=== PATIENT | female | born 1940 | race Caucasian/White ===

== ENCOUNTER → 2023-10-18 | Outpatient (CLI) | payer MEDICARE | END | disposition home or self-care (01) | LOC: LABWHC1 14:34 | PROVIDERS: ATTEND Internal Medicine Cardiovascular Disease | DX: I48.11 Longstanding persistent atrial fibrillation (principal) | CPT/HCPCS: 36415; 84443; 84450; 84460 ==

== ENCOUNTER → 2023-11-22 | Outpatient (CLI) | payer MEDICARE ==
--- NOTE | 2023-11-22 11:57 | BD ---
EXAMINATION TYPE: Axial Bone Density DATE OF EXAM: 11/22/2023 CLINICAL HISTORY: 83 years old Female. ICD-10 CODE: M81.0 OSTEOPOROSIS Height: 55.5 Weight: 91 FRAX RISK QUESTIONS: Family History (Parent hip fracture): no History of Fracture in Adulthood: yes Secondary Osteoporosis: yes 3. Menopause before 45: yes 39 RISK FACTORS HISTORY OF: Surgery to Spine/Hip(right/left)/Wrist (right/left): no MEDICATIONS: Thyroid Medications: yes Which medication: Levothyroxine How Lon+ years Osteoporosis Medications: no EXAM MEASUREMENTS: Bone mineral densitometry was performed using the [employer] System. Bone mineral density as measured about the Lumbar spine is: ----- L1-L4(G/cm2): 1.134 T Score Values are as follows: ----- L1: -1.0 ----- L2: -1.0 ----- L3: 0.1 ----- L4: 0.0 ----- L1-L4: -0.4 Z Score Values are as follows: ----- L1: 1.7 ----- L2: 1.7 ----- L3: 2.8 ----- L4: 2.7 ----- L1-L4: -0.4 Bone mineral density baseline Bone mineral density about the R hip (g/cm2): 0.536 Bone mineral density about the L hip (g/cm2): 0.632 T Score values are as follows: -----R Neck: -3.2 -----L Neck: -2.8 -----R Total: -3.7 -----L Total: -3.0 Z Score values are as follows: -----R Neck: -0.2 -----L Neck: 0.1 -----R Total: -0.9 -----L Total: -0.1 Bone mineral density baseline FRAX%s: The graph provided illustrates a 29.6% chance for a major osteoporotic fx and a 12.2% chance for the hips probability for fx in 10 years time. IMPRESSION: Osteoporosis (T Score less than -2.5). There is increased fracture risk and therapy is usually indicated based on age. Re-Screen 1-2 years. NOTE: T-SCORE=SD OF THE YOUNG ADULT MEAN.
== END | disposition home or self-care (01) ==
LOC: RADBDWWP 10:33
PROVIDERS: ATTEND Family Medicine
DX: M85.89 Other specified disorders of bone density and structure, multiple sites (principal)
CPT/HCPCS: 77080

== ENCOUNTER 2024-02-28 19:07 | Inpatient (IN) | payer MEDICARE ==
[2024-02-28] MEDS: MECLIZINE 12.5 MG TAB PO STA (20:26)
[2024-02-28 20:27] LABS: Basophils % (A) 0 %; Eosinophils % (A) 0 %; HCT 40.4 % (34.0-46.0); Lymphocytes # (A) 0.8 k/uL (1.0-4.8); Lymphocytes % (A) 6 %; MCHC 32.2 g/dL (31.0-37.0); MCV 111.7 fL (80.0-100.0); Macrocytosis Marked; Mean Platelet Volume 7.6; Monocytes # (A) 0.7 k/uL (0-1.0); Monocytes % (A) 5 %; Neutrophils # (A) 12.4 k/uL (1.3-7.7); Neutrophils % (A) 88 %; Platelet Count 143 k/uL (150-450); RBC 3.62 m/uL (3.80-5.40); RDW 12.2 % (11.5-15.5); WBC 14.1 k/uL (3.8-10.6)
[2024-02-28] MEDS: SODIUM CHLORIDE 0.9% 1,000 ML IV STA (20:28)
[2024-02-28 20:31] LABS: ALT 16 U/L (4-34); AST 42 U/L (14-36); African American GFR (CKD) >90 (>60 ml/min/1.73 sqM); Albumin 3.8 g/dL (3.5-5.0); Alkaline Phosphatase 52 U/L (38-126); Anion Gap 8 mmol/L; Blood Urea Nitrogen 21 mg/dL (7-17); Calcium 9.3 mg/dL (8.4-10.2); Carbon Dioxide 25 mmol/L (22-30); Chloride 98 mmol/L (98-107); Glucose 127 mg/dL (74-99); Non-African American GFR(CKD) 79 (>60 ml/min/1.73 sqM); Potassium 4.6 mmol/L (3.5-5.1); Sodium 131 mmol/L (137-145); Total Bilirubin 0.8 mg/dL (0.2-1.3)
[2024-02-28 20:33] LABS: Prothrombin Time 10.8 sec (10.0-12.5)
--- NOTE | 2024-02-28 20:49 | XR ---
EXAMINATION TYPE: XR chest 2V DATE OF EXAM: 02/28/2024 COMPARISON: None INDICATION: Lightheadedness general weakness on O2 TECHNIQUE: Frontal and lateral views of the chest are obtained. FINDINGS: The heart size is enlarged. There is a large hiatal hernia with air The pulmonary vasculature is prominent. Mild costophrenic angle infiltrates are present.. Degenerative changes are at the bilateral shoulders. There may be partial visualization of a fracture of the right humeral neck. This could be chronic. Correlate with patient history. IMPRESSION: 1. Large hiatal hernia. 2. Bibasilar infiltrates. Correlate for atelectasis. 3. Correlate for pain at the right shoulder. Chronic right shoulder fracture may be present. [facility], Workstation: [facility], 02/28/2024 8:47 PM
[2024-02-28 21:37] LABS: Appearance,Urine Clear (Clear); Bilirubin,Urine Negative (Negative); Blood,Urine Negative (Negative); Color,Urine Light Yellow; Glucose,Urine (UA) Negative (Negative); Ketones,Urine Negative (Negative); Leukocyte Esterase,Urine Negative (Negative); Nitrite,Urine Negative (Negative); PH, Urine 5.5 (5.0-8.0); Protein,Urine Negative (Negative); Specific Gravity,Urine 1.022 (1.001-1.035); Urobilinogen,Urine <2.0 mg/dL (<2.0)
--- NOTE | 2024-02-28 22:11 | CT ---
EXAMINATION TYPE: CT brain wo con DATE OF EXAM: 02/28/2024 HISTORY: Generalized weakness brought in by EMS from [facility]. Pt. is AOx4 and denies pain. W ears 2L O2 at night. CT DLP: 1076.8 mGycm. Automated Exposure Control for Dose Reduction was Utilized. TECHNIQUE: CT scan of the head is performed without contrast. COMPARISON: None. FINDINGS: There is no acute intracranial hemorrhage or midline shift identified. There is moderate diffuse ventricular and sulcal prominence consistent with diffuse age-related cerebral atrophy. Ther e is mild to moderate low-attenuation in the periventricular white matter most likely consistent with chronic small vessel ischemic change in patient of this age. Old infarct left basal ganglia axial im age 25 is noted extending superiorly towards the welsh radiata. Bilateral scleral calcifications are present. Nasal septum is deviated to right of midline. There is dependent fluid in the left sphenoid sinus otherwise paranasal sinuses are clear. IMPRESSION: No acute intracranial hemorrhage or midline shift. There is moderate diffuse age-relate d cerebral atrophy and mild to moderate chronic small vessel ischemic change noted. 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 Left sphenoid sinus disease is noted. [facility], , 02/28/2024 10:08 PM
--- NOTE | 2024-02-28 22:13 | ED ---
General Adult HPI - General Chief complaint: Weakness Stated complaint: Weakness Time Seen by Provider: 02/28/24 19:16 Source: EMS Mode of arrival: EMS - History of Present Illness Initial comments: Patient is an 84-year-old female with a past medical history of atrial fibrillation, not on thinners, COPD on 2 and half liters home oxygen at night presenting today for generalized weakness and lightheadedness. The patient states that she often gets intermittent lightheadedness when she gets up to the bathroom at night however last night she began having lightheadedness around 11:00 and it persisted throughout the day today. She also typically ambulates with a walker however, currently lives with her sister and today was unsteady on her feet even with this. Patient endorses intermittent blurred vision but denies any new numbness, focal weakness, slurred speech or confusion. 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 Additionally she has a dry cough but denies hemoptysis. Denies chest pain or shortness of breath. Denies abdominal pain, nausea, vomiting, diarrhea black or bloody stools. Denies headache. Denies fevers or chills. - Related Data Home Medications Medication Instructions Recorded Confirmed Albuterol Sulfate [Ventolin HFA] 2 puff INHALATION RT-QID PRN 02/28/24 02/28/24 Amiodarone [Cordarone] 100 mg PO DAILY 02/28/24 02/28/24 Atorvastatin Calcium [Lipitor] 40 mg PO HS 02/28/24 02/28/24 Candesartan Cilexetil 8 mg PO DAILY 02/28/24 02/28/24 Esomeprazole Magnesium [NexIUM] 40 mg PO DAILY 02/28/24 02/28/24 Gabapentin [Neurontin] 200 mg PO HS 02/28/24 02/28/24 Ipratropium Barton [Ipratropium 2 spray EA NOSTRIL BID 02/28/24 02/28/24 Barton 0.03%] Levothyroxine Sodium [Synthroid] 100 mcg PO DAILY 02/28/24 02/28/24 Loratadine [Alavert] 10 mg PO DAILY 02/28/24 02/28/24 Magnesium Oxide [Mag-Ox] 800 mg PO HS 02/28/24 02/28/24 Carbon-3/Dha/Epa/Fish Oil [Fish Oil 4 cap PO DAILY 02/28/24 02/28/24 1,000 mg Softgel] Tiotropium Barton [Spiriva] 1 cap INHALATION RT-DAILY 02/28/24 02/28/24 guaiFENesin [Mucinex] 600 mg PO BID 02/28/24 02/28/24 prednisoLONE ACETATE 1% OPHTH 2 drops BOTH EYES BID 02/28/24 02/28/24 [Pred Forte 1%] Allergies Allergy/AdvReac Type Severity Reaction Status Date / Time aspirin AdvReac 325mg Verified 02/28/24 20:21 causes abdominal pain olmesartan [From Benicar] AdvReac "makes her Verified 02/28/24 20:21 crazy" Review of Systems ROS Statement: Those systems with pertinent positive or pertinent negative responses have been documented in the HPI. ROS Other: All systems not noted in ROS Statement are negative. Past Medical History Past Medical History: Atrial Fibrillation, COPD, Hyperlipidemia, Hypertension, Osteoarthritis (OA) History of Any Multi-Drug Resistant Organisms: None Reported Past Psychological History: No Psychological Hx Reported, Anxiety, Depression Smoking Status: Former smoker Past Alcohol Use History: None Reported Past Drug Use History: None Reported General Exam - General Exam Comments Initial Comments: PE: CONSTITUTIONAL: No apparent distress, chronically ill-appearing SKIN: Warm, dry, no jaundice, hives or petechiae EYES: Pupils are equally round, extraocular movements intact without nystagmus, clear conjunctiva, non-icteric sclera HENT: Normocephalic, atraumatic, moist mucus membranes, oropharynx clear without exudates NECK: , Full range of motion, normal appearance PULMONARY: Clear to auscultation without wheezes, rhonchi, or rales, normal excursion, no accessory muscle use and no stridor CARDIOVASCULAR: Irregularly irregular rhythm, normal S1 and S2. No appreciated murmurs, rubs or gallops. Strong radial pulses with intact distal perfusion. No lower extremity edema GASTROINTESTINAL: Soft, active bowel sounds throughout, non-tender, non- distended, no palpable masses, no rebound or guarding. No hepatosplenomegaly MUSCULOSKELETAL: Extremities have no gross deformity, no edema, redness, or swelling. No calf swelling NEUROLOGIC:_a/o x 3, GCS 15, normal mentation and speech. Moves all extremities x 4 without motor or sensory deficit. Cranial nerves: II (visual reina without defects), III, IV and (extraocular movements are intact, pupils are equal with normal reaction to light), V (intact facial sensation and jaw opening), VII (no facial droop), IX and X (normal palate movement, midline uvula, normal voice), XI (symmetrical shoulder shrug and lateral head rotation against resistance), XII (midline tongue protrusion). Motor strength is 5/5 in all extremities. No abnormal movements. Normal muscle tone. Sensation to light touch is intact bilaterally. No cerebellar signs ([id number] normal) PSYCHIATRIC:_normal mood and affect, thought process is clear and linear Course Vital Signs 02/28/24 02/28/24 19:16 21:32 Temperature 97.6 F Pulse Rate 62 57 L Respiratory 18 18 Rate Blood Pressure 108/69 86/55 O2 Sat by Pulse 96 97 Oximetry EKG Findings - EKG Comments: EKG Findings:: Atrial fibrillation, rate 59 bpm, [place] interval 229 ms, QRS duration 121 ms, QT/QTc 466/465 ms, left axis deviation, artifact present throughout, no ST elevations or depressions, no prior for comparison Q waves noted in V3, 4 5 and 6 Medical Decision Making - Medical Decision Making Was pt. sent in by a medical professional or institution (, PA, BATTERY PLATE ASSEMBLER, urgent care, hospital, or chcf...) When possible be specific @ -No Did you speak to anyone other than the patient for history (EMS, parent, family, police, friend...)? What history was obtained from this source @Spoke patient sister at bedside Did you review nursing and triage notes (agree or disagree)? Why? @ -I reviewed and agree with nursing and triage notes Were old charts reviewed (outside hosp., previous admission, EMS record, old EKG, old radiological studies, urgent care reports/EKG's, ch[facility] records)? Report findings @Medical records reviewed Differential Diagnosis (chest pain, altered mental status, abdominal pain women, abdominal pain men, vaginal bleeding, weakness, fever, dyspnea, syncope, headache, dizziness, GI bleed, back pain, seizure, CVA, palpatations, mental health, musculoskeletal)? @Differential Weakness: Hypoglycemia, shock, sepsis, hyponatremia, anemia, infection, ACS, adverse medicine reaction, stroke, this is not meant to be an all-inclusive list. EKG interpreted by me (3pts min.). @ -As above X-rays interpreted by me (1pt min.). @ -Bilateral lower lobe infiltrates CT interpreted by me (1pt min.). @ -No hemorrhage on CT brain, left subclavian artery occlusion, otherwise no LVO on CTA U/S interpreted by me (1pt. min.). @ -None done What testing was considered but not performed or refused? (CT, X-rays, U/S, labs)? Why? @ -None What meds were considered but not given or refused? Why? @ -None Did you discuss the management of the patient with other professionals (professionals i.e. , PA, BATTERY PLATE ASSEMBLER, lab, RT, psych nurse, social security specialist, replenishment merchandising associate, teacher, postal delivery officer, correctional case manager)? Give summary @ -No Was smoking cessation discussed for >3mins.? @ -No Was critical care preformed (if so, how long)? @ -No Were there social determinants of health that impacted care today? How? (Homelessness, low income, unemployed, alcoholism, drug addiction, transportation, low edu. Level, literacy, decrease access to med. care, retirement, rehab)? @ -No Was there de-escalation of care discussed even if they declined (Discuss DNR or withdrawal of care, Hospice)? @ -No What co-morbidities impacted this encounter? (DM, HTN, Smoking, COPD, CAD, Cancer, CVA, ARF, Chemo, Hep., AIDS, mental health diagnosis, sleep apnea, mor bid obesity)? @ -COPD on home 2 and half liters oxygen nightly, atrial fibrillation Was patient admitted / discharged? Hospital course, mention meds given and route, prescriptions, significant lab abnormalities, going to OR and other pertinent info. @ -Admission- Patient is a pleasant 84-year-old female past medical history of atrial fibrillation not on thinners, COPD on 2.5 L oxygen nightly presenting for lightheadedness and generalized weakness. Patient seen and assessed on arrival. On my assessment she is a pleasant comfortable 84-year-old female no acute distress. On 4 L oxygen nasal cannula, though was decreased to 2.5 L by myself and maintain oxygen saturation of 98%. Skin [place] and well-perfused, 2+ radial pulses bilaterally, irregularly irregular rhythm on cardiac exam, no lower extremity edema, no rhonchi rales or wheezes on pulmonary exam, abdomen soft and nontender. No focal neurologic deficits on my evaluation, visual reina are grossly intact. Given patient's history of prior CVA will obtain CT brain CTA to ensure no evidence of hemorrhage or infarct though I would low suspicion for this given lack of focal neurologic deficits, additionally plan for chest x-ray and comprehensive labs, IV fluids meclizine. Patient agreeable plan. EKG did show prolonged QT interval, ordered IV magnesium. CT brain, CTA negative for acute process. 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 She states she is not on thinners for this. Additionally chest x-ray shows bibasilar infiltrates, on my review does appear to be bilateral pneumonia, labs do show mild leukocytosis. Will administer Rocephin and azithromycin. Additionally of note, does note chronic right humerus fracture, patient states that she has previously broken this. On reassessment patient does endorse improvement of lightheadedness however we did ambulate her here and she was significantly unsteady. Her sister voices concern that patient is a fall risk due to worsening weakness. Discussed with patient admission for generalized weakness and pneumonia. Patient is agreeable plan of care. Case was discussed with YANICK Wan who kindly accept patient for admission. Patient admitted in stable condition. Home medications ordered. Undiagnosed new problem with uncertain prognosis? @ -No Drug Therapy requiring intensive monitoring for toxicity (Heparin, Nitro, Insulin, Cardizem)? @ -No Were any procedures done? @ -No Diagnosis/symptom? @Generalized weakness, community-acquired pneumonia Acute, or Chronic, or Acute on Chronic? @Acute Uncomplicated (without systemic symptoms) or Complicated (systemic symptoms)? @Complicated Side effects of treatment? @ -No Exacerbation, Progression, or Severe Exacerbation? @ -No Poses a threat to life or bodily function? How? (Chest pain, USA, LA, pneumonia, PE, COPD, DKA, ARF, appy, cholecystitis, CVA, Diverticulitis, Homicidal, Suicidal, threat to staff... and all critical care pts) @Yes - Lab Data Result diagrams: 02/28/24 19:18 02/28/24 19:18 Lab Results 10/31/24 10/31/24 10/31/24 Range/Units 19:18 19:18 19:18 WBC 14.1 H (3.8-10.6) k/uL RBC 3.62 L (3.80-5.40) m/uL Hgb 13.0 (11.4-16.0) gm/dL Hct 40.4 (34.0-46.0) % MCV 111.7 H (80.0-100.0) fL MCH 36.0 H (25.0-35.0) pg MCHC 32.2 (31.0-37.0) g/dL RDW 12.2 (11.5-15.5) % Plt Count 143 L (150-450) k/uL MPV 7.6 Neutrophils % 88 % Lymphocytes % 6 % Monocytes % 5 % Eosinophils % 0 % Basophils % 0 % Neutrophils # 12.4 H (1.3-7.7) k/uL Lymphocytes # 0.8 L (1.0-4.8) k/uL Monocytes # 0.7 (0-1.0) k/uL Eosinophils # 0.0 (0-0.7) k/uL Basophils # 0.0 (0-0.2) k/uL Manual Slide Review Performed Macrocytosis Marked A PT 10.8 (10.0-12.5) sec INR 1.0 (<1.2) Sodium 131 L (137-145) mmol/L Potassium 4.6 (3.5-5.1) mmol/L Chloride 98 (98-107) mmol/L Carbon Dioxide 25 (22-30) mmol/L Anion Gap 8 mmol/L BUN 21 H (7-17) mg/dL Creatinine 0.70 (0.52-1.04) mg/dL Est GFR (CKD-EPI)AfAm >90 (>60 ml/min/1.73 sqM) Est GFR (CKD-EPI)NonAf 79 (>60 ml/min/1.73 sqM) Glucose 127 H (74-99) mg/dL Calcium 9.3 (8.4-10.2) mg/dL Total Bilirubin 0.8 (0.2-1.3) mg/dL AST 42 H (14-36) U/L ALT 16 (4-34) U/L Alkaline Phosphatase 52 (38-126) U/L Troponin I (0.000-0.034) ng/mL Total Protein 6.0 L (6.3-8.2) g/dL Albumin 3.8 (3.5-5.0) g/dL Urine Color Urine Appearance (Clear) Urine pH (5.0-8.0) Ur Specific [place] (1.001-1.035) Urine Protein (Negative) Urine Glucose (UA) (Negative) Urine Ketones (Negative) Urine Blood (Negative) Urine Nitrite (Negative) Urine Bilirubin (Negative) Urine Urobilinogen (<2.0) mg/dL Ur Leukocyte Esterase (Negative) Influenza Type A (PCR) (Not Detectd) Influenza Type B (PCR) (Not Detectd) RSV (PCR) (Not Detectd) SARS-CoV-2 (PCR) (Not Detectd) 02/28/24 02/28/24 02/28/24 Range/Units 19:18 21:14 23:01 WBC (3.8-10.6) k/uL RBC (3.80-5.40) m/uL Hgb (11.4-16.0) gm/dL Hct (34.0-46.0) % MCV (80.0-100.0) fL MCH (25.0-35.0) pg MCHC (31.0-37.0) g/dL RDW (11.5-15.5) % Plt Count (150-450) k/uL MPV Neutrophils % % Lymphocytes % % Monocytes % % Eosinophils % % Basophils % % Neutrophils # (1.3-7.7) k/uL Lymphocytes # (1.0-4.8) k/uL Monocytes # (0-1.0) k/uL Eosinophils # (0-0.7) k/uL Basophils # (0-0.2) k/uL Manual Slide Review Macrocytosis PT (10.0-12.5) sec INR (<1.2) Sodium (137-145) mmol/L Potassium (3.5-5.1) mmol/L Chloride (98-107) mmol/L Carbon Dioxide (22-30) mmol/L Anion Gap mmol/L BUN (7-17) mg/dL Creatinine (0.52-1.04) mg/dL Est GFR (CKD-EPI)AfAm (>60 ml/min/1.73 sqM) Est GFR (CKD-EPI)NonAf (>60 ml/min/1.73 sqM) Glucose (74-99) mg/dL Calcium (8.4-10.2) mg/dL Total Bilirubin (0.2-1.3) mg/dL AST (14-36) U/L ALT (4-34) U/L Alkaline Phosphatase (38-126) U/L Troponin I <0.012 (0.000-0.034) ng/mL Total Protein (6.3-8.2) g/dL Albumin (3.5-5.0) g/dL Urine Color Light Yellow Urine Appearance Clear (Clear) Urine pH 5.5 (5.0-8.0) Ur Specific [place] 1.022 (1.001-1.035) Urine Protein Negative (Negative) Urine Glucose (UA) Negative (Negative) Urine Ketones Negative (Negative) Urine Blood Negative (Negative) Urine Nitrite Negative (Negative) Urine Bilirubin Negative (Negative) Urine Urobilinogen <2.0 (<2.0) mg/dL Ur Leukocyte Esterase Negative (Negative) Influenza Type A (PCR) Not Detected (Not Detectd) Influenza Type B (PCR) Not Detected (Not Detectd) RSV (PCR) Not Detected (Not Detectd) SARS-CoV-2 (PCR) Not Detected (Not Detectd) Disposition Clinical Impression: Community acquired bacterial pneumonia, Generalized weakness Disposition: ADMITTED IP TO THIS HOSP Condition: Stable Referrals: Kian Ford NPC [Primary Care Provider] - 1-2 days
--- NOTE | 2024-02-28 22:45 | CT ---
EXAMINATION TYPE: CT angio head neck DATE OF EXAM: 02/28/2024 HISTORY: Generalized weakness brought in by EMS from [facility]. Pt. is AOx4 and denies pain. W ears 2L O2 at night. COMPARISON: NONE CT DLP: 336.4 mGycm. Automated Exposure Control for Dose Reduction was Utilized. TECHNIQUE: CTA scan of the head and neck is performed with IV Contrast, patient injected with 65 ml mL of Isovue 370, axial images are obtained, coronal and sagittal reformatted images are reviewed. 3D reconstructed images are created on an independent workstation and reviewed. FINDINGS: Carotid/Vascular Structures: Normal 3 vessel origins from the aortic arch. Severe calcified plaque le ft subclavian artery followed by prominent noncalcified plaque causing complete occlusion along long segment of the left subclavian artery extending into the brachiocephalic artery. Mild to moderate plaque along the course of the common carotid arteries bilaterally without significa nt stenosis. Moderate peripheral calcified plaque right carotid bulb. Moderate to severe calcified pl aque left carotid bulb. Focal significant stenosis down to 2.5 mm with reconstitution to 6.7 mm is no christian. Remainder of the internal carotid arteries show mild to moderate peripheral calcified plaque dis tally without significant stenosis. Patent external carotid arteries bilaterally are seen. Vertebral arteries are codominant and patent to the basilar junction. Patent bilateral posterior to i ndicating arteries are seen. Patent anterior communicating artery is noted. No large vessel occlusion or aneurysm at the level of the false pass of [place]. Other: Multilevel spondylolisthesis along with spurring and disc space narrowing in the cervical spin e. Moderate emphysematous change in the upper lungs is seen. There is partial visualization of large hiatal hernia intrathoracic stomach. IMPRESSION: 1. Complete occlusion of the left subclavian artery extending into the left brachiocephalic artery. C orrelate clinically for left upper extremity paresthesia. 2. Severe calcified plaque left carotid bulb causing focal significant stenosis with estimated lumina l diameter narrowing around 60% in the proximal left internal carotid artery. 3. No large vessel occlusion or aneurysm at the level of the false pass of [place]. NASCET criteria was used in interpretation of this exam? [facility], , 02/28/2024 10:43 PM
[2024-02-28] MEDS: AZITHROMYCIN 500 MG in SODIUM CHLORIDE 0.9% 250 ML IVPB STA (23:02)
[2024-02-28] MEDS: cefTRIAXone IN SWFI 1,000 MG/10 ML SYRINGE IVP STA (23:02)
[2024-02-28] MEDS ORDERED: traMADol 50 MG TAB PO PRN (23:44)
[2024-02-28] MEDS ORDERED: NALOXONE 0.4 MG/ML 1 ML VIAL IV PRN (23:44)
[2024-02-28] MEDS ORDERED: ALPRAZolam 0.25 MG TAB PO PRN (23:44)
[2024-02-28] MEDS ORDERED: ALBUTEROL NEBULIZED 2.5 MG/3 ML INHALATION PRN (23:50)
[2024-02-29] MEDS: MAGNESIUM SULFATE-D5W PMX 1 GM in DEXTROSE/WATER 1 100ML.BAG IVPB SCH (00:08)
[2024-02-29] MEDS: LEVOTHYROXINE 100 MCG TAB PO SCH (06:43)
[2024-02-29] MEDS: PANTOPRAZOLE 40 MG TABLET PO SCH (07:52)
[2024-02-29] MEDS ORDERED: ONDANSETRON 4 MG/2 ML VIAL IVP PRN (11:09)
[2024-02-29] MEDS ORDERED: LACTULOSE 20 GM/30 ML CUP PO PRN (11:09)
[2024-02-29] MEDS ORDERED: CALCIUM CARBONATE 500 MG CHEWABLE PO PRN (11:09)
[2024-02-29] MEDS: FAMOTIDINE 20 MG TAB PO SCH (12:14)
[2024-02-29] MEDS: AMIODARONE 100 MG TAB PO SCH (12:14)
[2024-02-29] MEDS: LOSARTAN 50 MG TAB PO SCH (12:14)
[2024-02-29] MEDS: guaiFENesin 600 MG TABLET.ER PO SCH ×2 (12:14→12:33)
[2024-02-29] MEDS: prednisoLONE ACETATE 1% OPHTH DROPS 5 ML BTL BOTH EYES SCH (12:15)
[2024-02-29] MEDS: ENOXAPARIN 40 MG/0.4 ML SYRINGE SQ SCH (12:16)
[2024-02-29] MEDS: LORATADINE 10 MG TAB PO SCH (12:31)
--- NOTE | 2024-02-29 15:57 | P.HPIM ---
History of Present Illness H&P Date: 02/29/24 Chief Complaint: Cough Very pleasant 84-year-old patient, follows with Dr. Jamie Ford from visiting physicians. Medical conditions include atrial fibrillation, COPD, hypertension, hyperlipidemia, osteoarthritis, complete occlusion of left subclavian artery, does use a walker. Patient at least for a week has been feeling more and more weak coming on. Has a cough mainly unable to expectorate. Rather weak and tired. Denies any fever and chills. Appetite is okay. Patient does use oxygen at home at 2 L. Significant cough. Review of systems: GEN.: Tired EYES: None HEENT: None NECK: None RESPIRATORY: [As above CARDIOVASCULAR: None GASTROINTESTINAL: None GENITOURINARY: None MUSCULOSKELETAL: Joint pains LYMPHATICS: None HEMATOLOGICAL: None PSYCHIATRY: None NEUROLOGICAL: [Uses a walker Social history: Lives at assisted living. Sister lives with her. Does use a walker. Home oxygen at night 2 L. Physical examination: VITAL SIGNS: 97.6, 62, 18, 108/69, 96% on 4 L upon presentation GENERAL: [Reclining in chair, tired, coughing, weak appearing. EYES: Pupils equal. Conjunctiva camila l. HEENT: External appearance of nose and ears normal, oral cavity grossly normal. NECK: JVD not raised; masses not palpable. HEART: First and second heart sounds are normal; no edema. LUNGS: Respiratory rate increased, diminished breath sound prolonged expiration coarse expiratory crackles. Audibly congested. ABDOMEN: Soft, nontender, liver spleen not palpable, no masses palpable. PSYCH: Alert and oriented x3; mood and affect camila l. MUSCULOSKELETAL:No Clubbing/cyanosis;muscles-grossly intact. OA NEUROLOGICAL: Cranial nerves grossly intact; no facial asymmetry, power and sensation grossly intact. LYMPHATICS: No lymph nodes palpable in the axilla and neck INVESTIGATIONS, reviewed in the clinical context: February 27: White count 14.1 hemoglobin 13 platelets 143 sodium 131 potassium 4.6 BUN 21 creatinine 0.7 Troponin I less than 0.012 UA: Negative Influenza type A, type B, RSV, COVID-19: Not detected EKG tracing personally reviewed by me-poor R wave progression. LVH. Some ST-T wave changes. Chest x-ray film personally reviewed by me-large hiatal hernia. Basilar infiltrates. Assessment and plan: -Basal pneumonia. Suspect gram-negative organism. Patient has been weak for a few days. Not able to expectorate much. Ceftriaxone 1 g daily. Zithromax Mucinex 600 mg 4 times daily. Flutter valve. Humidified oxygen -Acute COPD exacerbation in the prior smoker DuoNeb every 4. Nebulized Pulmicort -Acute hypoxic respiratory failure from pneumonia On 4 L of oxygen -Chronic hypoxic respiratory failure. 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 Patient has designated his niece as a medical POA when she is not able to take decisions. Her overall medical condition was discussed. Patient this point is not sure about remaining full code versus DNR. Clinical condition was discussed. At this point patient to remain full code and will she is seen by tomorrow if she wishes to be a DNR. 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 History of Any Multi-Drug Resistant Organisms: None Reported Additional Past Surgical History / Comment(s): previous draining fluid around heart 10 yrs ago per pt Past Anesthesia/Blood Transfusion Reactions: No Reported Reaction Past Psychological History: No Psychological Hx Reported, Anxiety, Depression Smoking Status: Former smoker Past Alcohol Use History: None Reported Past Drug Use History: None Reported - Past Family History Father Family Medical History: Coronary Artery Disease (CAD) Brother(s) Family Medical History: Cancer Medications and Allergies Home Medications Medication Instructions Recorded Confirmed Type Albuterol Sulfate [Ventolin HFA] 2 puff INHALATION RT-QID PRN 02/28/24 02/28/24 History Amiodarone [Cordarone] 100 mg PO DAILY 02/28/24 02/28/24 History Atorvastatin Calcium [Lipitor] 40 mg PO HS 02/28/24 02/28/24 History Candesartan Cilexetil 8 mg PO DAILY 02/28/24 02/28/24 History Esomeprazole Magnesium [NexIUM] 40 mg PO DAILY 02/28/24 02/28/24 History Gabapentin [Neurontin] 200 mg PO HS 02/28/24 02/28/24 History Ipratropium Stark [Ipratropium 2 spray EA NOSTRIL BID 02/28/24 02/28/24 History Stark 0.03%] Levothyroxine Sodium [Synthroid] 100 mcg PO DAILY 02/28/24 02/28/24 History Loratadine [Alavert] 10 mg PO DAILY 02/28/24 02/28/24 History Magnesium Oxide [Mag-Ox] 800 mg PO HS 02/28/24 02/28/24 History Ferris-3/Dha/Epa/Fish Oil [Fish Oil 4 cap PO DAILY 02/28/24 02/28/24 History 1,000 mg Softgel] Tiotropium Stark [Spiriva] 1 cap INHALATION RT-DAILY 02/28/24 02/28/24 History guaiFENesin [Mucinex] 600 mg PO BID 02/28/24 02/28/24 History prednisoLONE ACETATE 1% OPHTH 2 drops BOTH EYES BID 02/28/24 02/28/24 History [Pred Forte 1%] Allergies Allergy/AdvReac Type Severity Reaction Status Date / Time aspirin AdvReac 325mg Verified 02/28/24 20:21 causes abdominal pain olmesartan [From Benicar] AdvReac "makes her Verified 02/28/24 20:21 crazy" Physical Exam Vitals: Vital Signs Temp Pulse Pulse Resp BP BP Pulse Ox 02/29/24 08:00 98.2 F 71 17 164/74 97 02/29/24 07:50 59 L 18 135/66 97 02/29/24 05:00 62 16 117/67 97 02/29/24 02:00 58 L 18 115/62 98 02/29/24 00:00 56 L 18 102/62 99 02/28/24 21:32 57 L 18 86/55 97 02/28/24 19:16 97.6 F 62 18 108/69 96 Intake and Output 02/28/24 02/29/24 02/29/24 22:59 06:59 14:59 Other: # Voids 1 Weight 44.906 kg 44.906 kg Results CBC & Chem 7: 02/28/24 19:18 02/28/24 19:18 Labs: Abnormal Lab Results - Last 24 Hours (Table) 02/28/24 02/28/24 Range/Units 19:18 19:18 WBC 14.1 H (3.8-10.6) k/uL RBC 3.62 L (3.80-5.40) m/uL MCV 111.7 H (80.0-100.0) fL MCH 36.0 H (25.0-35.0) pg Plt Count 143 L (150-450) k/uL Neutrophils # 12.4 H (1.3-7.7) k/uL Lymphocytes # 0.8 L (1.0-4.8) k/uL Macrocytosis Marked A Sodium 131 L (137-145) mmol/L BUN 21 H (7-17) mg/dL Glucose 127 H (74-99) mg/dL AST 42 H (14-36) U/L Total Protein 6.0 L (6.3-8.2) g/dL Thrombosis Risk Factor Assmnt - Choose All That Apply Each Factor Represents 1 point: Abnormal pulmonary function (COPD) Each Risk Factor Represents 3 Points: Age 75 years or older Thrombosis Risk Factor Assessment Total Risk Factor Score: 4 Thrombosis Risk Factor Assessment Level: Moderate Risk
[2024-02-29] MEDS: IPRATROPIUM-ALBUTEROL 3 ML NEB INHALATION SCH (16:07)
[2024-02-29] MEDS: ACETAMINOPHEN TAB 325 MG TAB PO PRN (16:50)
[2024-02-29] MEDS: BUDESONIDE 1 MG/2 ML NEBU INHALATION SCH (20:49)
[2024-02-29] MEDS: ATORVASTATIN 40 MG TAB PO SCH (21:19)
[2024-02-29] MEDS: GABAPENTIN 100 MG CAP PO SCH (21:19)
[2024-02-29] MEDS: MAGNESIUM OXIDE 400 MG TAB PO SCH (21:19)
[2024-03-01 06:40] LABS: ALT 15 U/L (4-34); AST 32 U/L (14-36); African American GFR (CKD) >90 (>60 ml/min/1.73 sqM); Albumin 3.4 g/dL (3.5-5.0); Albumin/Globulin Ratio 1.4; Alkaline Phosphatase 55 U/L (38-126); Anion Gap 6 mmol/L; Blood Urea Nitrogen 15 mg/dL (7-17); Calcium 9.1 mg/dL (8.4-10.2); Carbon Dioxide 25 mmol/L (22-30); Chloride 107 mmol/L (98-107); Globulin 2.4 g/dL; Glucose 89 mg/dL (74-99); Non-African American GFR(CKD) 88 (>60 ml/min/1.73 sqM); Potassium 4.2 mmol/L (3.5-5.1); Sodium 138 mmol/L (137-145); Total Bilirubin 0.5 mg/dL (0.2-1.3); Total Protein 5.8 g/dL (6.3-8.2)
[2024-03-01 14:00] VITALS: BMI 21.4
--- NOTE | 2024-03-01 14:17 | P.PN ---
Progress Note - Text Progress Note Date: 03/01/24 Chief Complaint: Cough Very pleasant 84-year-old patient, follows with Dr. Jamie Ford from visiting physicians. Medical conditions include atrial fibrillation, COPD, hypertension, hyperlipidemia, osteoarthritis, complete occlusion of left subclavian artery, do es use a walker. Patient at least for a week has been feeling more and more weak coming on. Has a cough mainly unable to expectorate. Rather weak and tired. Denies any fever and chills. Appetite is okay. Patient does use oxygen at home at 2 L. Significant cough. March 01: Cough a bit better. Still bringing up sputum. Some shortness of breath. Eating a bit better. Was up in the chair for few hours this morning. Advance care planning done yesterday. Today patient confirms she wants to be full code. Active Medications Acetaminophen (Acetaminophen Tab 325 Mg Tab) 650 mg PO Q6HR PRN PRN Reason: Mild Pain or Fever > 100.5 Last Admin: 02/29/24 16:50 Dose: 650 mg Albuterol Sulfate (Albuterol Nebulized 2.5 Mg/3 Ml) 2.5 mg INHALATION RT-QID PRN PRN Reason: Shortness Of Breath Albuterol/Ipratropium (Ipratropium-Albuterol 3 Ml Neb) 3 ml INHALATION RT-Q4H [facility] Last Admin: 03/01/24 12:50 Dose: 3 ml Alprazolam (Alprazolam 0.25 Mg Tab) 0.25 mg PO Q6HR PRN PRN Reason: Anxiety Amiodarone HCl (Amiodarone 100 Mg Tab) 100 mg PO DAILY [facility] Last Admin: 03/01/24 08:42 Dose: 100 mg Atorvastatin Calcium (Atorvastatin 40 Mg Tab) 40 mg PO HS [facility] Last Admin: 02/29/24 21:19 Dose: 40 mg Azithromycin (Azithromycin 500 Mg Tab) 500 mg PO DAILY [facility]; Protocol Stop: 03/03/24 09:01 Budesonide (Budesonide 1 Mg/2 Ml Nebu) 1 mg INHALATION RT-BID [facility] Last Admin: 03/01/24 09:33 Dose: 1 mg Calcium Carbonate/Glycine (Calcium Carbonate 500 Mg Chewable) 1,000 mg PO Q4HR PRN PRN Reason: Dyspepsia Enoxaparin Sodium (Enoxaparin 40 Mg/0.4 Ml Syringe) 40 mg SQ DAILY [facility] Last Admin: 03/01/24 08:41 Dose: 40 mg Famotidine (Famotidine 20 Mg Tab) 20 mg PO DAILY [facility] Last Admin: 03/01/24 08:41 Dose: 20 mg Gabapentin (Gabapentin 100 Mg Cap) 200 mg PO [facility] Last Admin: 02/29/24 21:19 Dose: 200 mg Guaifenesin (Guaifenesin 600 Mg Tablet.Er) 600 mg PO QID [facility] Last Admin: 03/01/24 12:05 Dose: 600 mg Ceftriaxone Sodium 1 gm/ (Sodium Chloride) 50 mls @ 100 mls/hr IVPB Q24HR [facility]; Protocol Lactulose (Lactulose 20 Gm/30 Ml Cup) 20 gm PO DAILY PRN PRN Reason: Constipation Levothyroxine Sodium (Levothyroxine 100 Mcg Tab) 100 mcg PO DAILY@0600 [facility] Last Admin: 03/01/24 06:36 Dose: 100 mcg Losartan Potassium (Losartan 50 Mg Tab) 50 mg PO DAILY [facility] Last Admin: 03/01/24 08:41 Dose: 50 mg Magnesium Oxide (Magnesium Oxide 400 Mg Tab) 800 mg PO [facility] Last Admin: 02/29/24 21:19 Dose: 800 mg Naloxone HCl (Naloxone 0.4 Mg/Ml 1 Ml Vial) 0.2 mg IV Q2M PRN PRN Reason: Opioid Reversal Ondansetron HCl (Ondansetron 4 Mg/2 Ml Vial) 4 mg IVP Q8HR PRN PRN Reason: Nausea And Vomiting Pantoprazole Sodium (Pantoprazole 40 Mg Tablet) 40 mg PO DAILY@0730 [facility] Last Admin: 03/01/24 06:36 Dose: 40 mg Prednisolone Acetate (Prednisolone Acetate 1% Ophth Drops 5 Ml Btl) 2 drops BOTH EYES BID [facility] Last Admin: 03/01/24 08:42 Dose: 2 drops Tramadol HCl (Tramadol 50 Mg Tab) 50 mg PO Q6H PRN PRN Reason: Moderate Pain (Scale 4 to 6) Social history: Lives at assisted living. Sister lives with her. Does use a walker. Home oxygen at night 2 L. Physical examination: VITAL SIGNS: 97.6, 63, 16, 171 x 89, 96% on 2 L GENERAL: Reclining in bed, breathing a bit better. EYES: Pupils equal. Conjunctiva camila l. HEENT: External appearance of nose and ears normal, oral cavity grossly normal. NECK: JVD not raised; masses not palpable. HEART: First and second heart sounds are normal; no edema. LUNGS: Respiratory rate increased, diminished breath sound prolonged expiration. Decreased congestion ABDOMEN: Soft, nontender, liver spleen not palpable, no masses palpable. PSYCH: Alert and oriented x3; mood and affect camila l. MUSCULOSKELETAL:No Clubbing/cyanosis;muscles-grossly intact. OA INVESTIGATIONS, reviewed in the clinical context: March 01: Potassium 4.2 creatinine 0.5 February 27: White count 14.1 hemoglobin 13 platelets 143 sodium 131 potassium 4.6 BUN 21 creatinine 0.7 Troponin I less than 0.012 UA: Negative Influenza type A, type B, RSV, COVID-19: Not detected EKG tracing personally reviewed by me-poor R wave progression. LVH. Some ST-T wave changes. Chest x-ray film personally reviewed by me-large hiatal hernia. Basilar infiltrates. Assessment and plan: -Basal pneumonia. Suspect gram-negative organism.: Some improvement Ceftriaxone 1 g daily. Zithromax Mucinex 600 mg 4 times daily. Flutter valve. Humidified oxygen -Acute COPD exacerbation in the prior smoker: Slow improvement DuoNeb every 4. Nebulized Pulmicort -Acute hypoxic respiratory failure from pneumonia: Better Now down to 2 L of oxygen -Chronic hypoxic respiratory failure. 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 Patient has designated his niece as a medical POA when she is not able to take decisions. Her overall medical condition was discussed. Patient this point is not sure about remaining full code versus DNR. Clinical condition was discussed. At this point patient to remain full code and will she is seen by tomorrow if she wishes to be a DNR. Time spent with this about 25 minutes Discussed. Continue current treatment plan. 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
[2024-03-01] MEDS: AZITHROMYCIN 500 MG TAB PO SCH (15:15)
[2024-03-02 08:37] VITALS: RESP 17
--- NOTE | 2024-03-02 13:49 | P.PN ---
Progress Note - Text Progress Note Date: 03/02/24 Chief Complaint: Cough Very pleasant 84-year-old patient, follows with Dr. Jamie Ford from visiting physicians. Medical conditions include atrial fibrillation, COPD, hypertension, hyperlipidemia, osteoarthritis, complete occlusion of left subclavian artery, do es use a walker. Patient at least for a week has been feeling more and more weak coming on. Has a cough mainly unable to expectorate. Rather weak and tired. Denies any fever and chills. Appetite is okay. Patient does use oxygen at home at 2 L. Significant cough. March 01: Cough a bit better. Still bringing up sputum. Some shortness of breath. Eating a bit better. Was up in the chair for few hours this morning. Advance care planning done yesterday. Today patient confirms she wants to be full code. March 02: Breathing better. Still bringing up significant amount of sputum. I reminded the nurse to make sure that flutter valve is used. Sitting in the corner of the room. Eating fair. Up in a recliner. Active Medications Acetaminophen (Acetaminophen Tab 325 Mg Tab) 650 mg PO Q6HR PRN PRN Reason: Mild Pain or Fever > 100.5 Last Admin: 03/02/24 08:04 Dose: 650 mg Albuterol Sulfate (Albuterol Nebulized 2.5 Mg/3 Ml) 2.5 mg INHALATION RT-QID PRN PRN Reason: Shortness Of Breath Albuterol/Ipratropium (Ipratropium-Albuterol 3 Ml Neb) 3 ml INHALATION RT-Q4H [facility] Last Admin: 03/02/24 11:42 Dose: 3 ml Alprazolam (Alprazolam 0.25 Mg Tab) 0.25 mg PO Q6HR PRN PRN Reason: Anxiety Amiodarone HCl (Amiodarone 100 Mg Tab) 100 mg PO DAILY [facility] Last Admin: 03/02/24 08:01 Dose: 100 mg Atorvastatin Calcium (Atorvastatin 40 Mg Tab) 40 mg PO HS [facility] Last Admin: 03/01/24 21:54 Dose: 40 mg Azithromycin (Azithromycin 500 Mg Tab) 500 mg PO DAILY [facility]; Protocol Stop: 03/03/24 09:01 Last Admin: 03/02/24 08:01 Dose: 500 mg Budesonide (Budesonide 1 Mg/2 Ml Nebu) 1 mg INHALATION RT-BID [facility] Last Admin: 03/02/24 08:33 Dose: 1 mg Calcium Carbonate/Glycine (Calcium Carbonate 500 Mg Chewable) 1,000 mg PO Q4HR PRN PRN Reason: Dyspepsia Enoxaparin Sodium (Enoxaparin 40 Mg/0.4 Ml Syringe) 40 mg SQ DAILY [facility] Last Admin: 03/02/24 08:00 Dose: 40 mg Famotidine (Famotidine 20 Mg Tab) 20 mg PO DAILY [facility] Last Admin: 03/02/24 08:01 Dose: 20 mg Gabapentin (Gabapentin 100 Mg Cap) 200 mg PO [facility] Last Admin: 03/01/24 21:54 Dose: 200 mg Guaifenesin (Guaifenesin 600 Mg Tablet.Er) 600 mg PO QID [facility] Last Admin: 03/02/24 12:40 Dose: 600 mg Ceftriaxone Sodium 1 gm/ (Sodium Chloride) 50 mls @ 100 mls/hr IVPB Q24HR [facility]; Protocol Last Admin: 03/02/24 08:00 Dose: 100 mls/hr Lactulose (Lactulose 20 Gm/30 Ml Cup) 20 gm PO DAILY PRN PRN Reason: Constipation Levothyroxine Sodium (Levothyroxine 100 Mcg Tab) 100 mcg PO DAILY@0600 [facility] Last Admin: 03/02/24 06:12 Dose: 100 mcg Losartan Potassium (Losartan 50 Mg Tab) 50 mg PO DAILY [facility] Last Admin: 03/02/24 08:01 Dose: 50 mg Magnesium Oxide (Magnesium Oxide 400 Mg Tab) 800 mg PO [facility] Last Admin: 03/01/24 21:54 Dose: 800 mg Naloxone HCl (Naloxone 0.4 Mg/Ml 1 Ml Vial) 0.2 mg IV Q2M PRN PRN Reason: Opioid Reversal Ondansetron HCl (Ondansetron 4 Mg/2 Ml Vial) 4 mg IVP Q8HR PRN PRN Reason: Nausea And Vomiting Pantoprazole Sodium (Pantoprazole 40 Mg Tablet) 40 mg PO DAILY@0730 [facility] Last Admin: 03/02/24 06:12 Dose: 40 mg Prednisolone Acetate (Prednisolone Acetate 1% Ophth Drops 5 Ml Btl) 2 drops BOTH EYES BID [facility] Last Admin: 03/02/24 08:02 Dose: 2 drops Tramadol HCl (Tramadol 50 Mg Tab) 50 mg PO Q6H PRN PRN Reason: Moderate Pain (Scale 4 to 6) Social history: Lives at assisted living. Sister lives with her. Does use a walker. Home oxygen at night 2 L. Physical examination: VITAL SIGNS: 97.9, 73, 17, 135 and 91, 95% on 2 L GENERAL: In a recliner, some shortness of breath EYES: Pupils equal. Conjunctiva camila l. HEENT: External appearance of nose and ears normal, oral cavity grossly normal. NECK: JVD not raised; masses not palpable. HEART: First and second heart sounds are normal; no edema. LUNGS: Respiratory rate increased, diminished breath sound, some basal crackles ABDOMEN: Soft, nontender, liver spleen not palpable, no masses palpable. PSYCH: Alert and oriented x3; mood and affect camila l. MUSCULOSKELETAL:No Clubbing/cyanosis;muscles-grossly intact. OA INVESTIGATIONS, reviewed in the clinical context: March 01: Potassium 4.2 creatinine 0.5 February 27: White count 14.1 hemoglobin 13 platelets 143 sodium 131 potassium 4.6 BUN 21 creatinine 0.7 Troponin I less than 0.012 UA: Negative Influenza type A, type B, RSV, COVID-19: Not detected EKG tracing personally reviewed by me-poor R wave progression. LVH. Some ST-T wave changes. Chest x-ray film personally reviewed by me-large hiatal hernia. Basilar infiltrates. Assessment and plan: -Basal pneumonia. Suspect gram-negative organism.: Slow improvement Ceftriaxone 1 g daily. Zithromax Mucinex 600 mg 4 times daily. Flutter valve. Humidified oxygen -Acute COPD exacerbation in the prior smoker: Slow improvement DuoNeb every 4. Nebulized Pulmicort -Acute hypoxic respiratory failure from pneumonia: Better Now down to 2 L of oxygen -Chronic hypoxic respiratory failure. 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 Patient has designated his niece as a medical POA when she is not able to take decisions. Her overall medical condition was discussed. Patient this point is not sure about remaining full code versus DNR. Clinical condition was discussed. At this point patient to remain full code and will she is seen by tomorrow if she wishes to be a DNR. Time spent with this about 25 minutes Continue current medication treatment plan. Discussed with patient. 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
[2024-03-03 07:38] VITALS: BP 167/98; TEMP 97.8
[2024-03-03 11:15] VITALS: PULSE 76
--- NOTE | 2024-03-03 17:14 | P.DS ---
Providers Date of admission: 02/28/24 23:45 Expected date of discharge: 03/03/24 Attending physician: Efren Eric Primary care physician: MARIE Culver Hospital Course: Chief Complaint: Cough Very pleasant 84-year-old patient, follows with Dr. Jamie Ford from visiting physicians. Medical conditions include atrial fibrillation, COPD, hypertension, hyperlipidemia, osteoarthritis, complete occlusion of left subclavian artery, does use a walker. Patient at least for a week has been feeling more and more weak coming on. Has a cough mainly unable to expectorate. Rather weak and tired. Denies any fever and chills. Appetite is okay. Patient does use oxygen at home at 2 L. Significant cough. March 01: Cough a bit better. Still bringing up sputum. Some shortness of breath. Eating a bit better. Was up in the chair for few hours this morning. Advance care planning done yesterday. Today patient confirms she wants to be full code. March 02: Breathing better. Still bringing up significant amount of sputum. I reminded the nurse to make sure that flutter valve is used. Sitting in the corner of the room. Eating fair. Up in a recliner. March 03: In a recliner. Bringing up good amount of sputum. Eating much better. Keen to go home. Will complete 4 more days of Ceftin. Has him oxygen. Will discontinue patient's Spiriva because of poor muscle mass and arthritis. Will discharge on Symbicort and DuoNeb. Patient does follow-up with seed analysis laboratory assistant Dr. Martinez. Follow-up with the same. Discussion and discharge planning more than 35 minutes Social history: Lives at assisted living. Sister lives with her. Does use a walker. Home oxygen at night 2 L. Physical examination: VITAL SIGNS: 97.8, 72, 17, 167 Ac 98, 95% liters GENERAL: In a recliner, comfortable EYES: Pupils equal. Conjunctiva camila l. HEENT: External appearance of nose and ears normal, oral cavity grossly normal. NECK: JVD not raised; masses not palpable. HEART: First and second heart sounds are normal; no edema. LUNGS: Respiratory rate increased, diminished breath sound, improved crackles ABDOMEN: Soft, nontender, liver spleen not palpable, no masses palpable. PSYCH: Alert and oriented x3; mood and affect camila l. MUSCULOSKELETAL:No Clubbing/cyanosis;muscles-grossly intact. OA INVESTIGATIONS, reviewed in the clinical context: March 01: Potassium 4.2 creatinine 0.5 February 27: White count 14.1 hemoglobin 13 platelets 143 sodium 131 potassium 4.6 BUN 21 creatinine 0.7 Troponin I less than 0.012 UA: Negative Influenza type A, type B, RSV, COVID-19: Not detected EKG tracing personally reviewed by me-poor R wave progression. LVH. Some ST-T wave changes. Chest x-ray film personally reviewed by me-large hiatal hernia. Basilar infiltrates. Assessment and plan: -Basal pneumonia. Suspect gram-negative organism.: Much better Ceftriaxone 1 g daily. Zithromax Mucinex 600 mg 4 times daily. Flutter valve. Humidified oxygen Discharged on 4 4 days of Ceftin 5 mg twice daily -Acute COPD exacerbation in the prior smoker: Much better DuoNeb every 4. Nebulized Pulmicort Discharged on DuoNeb 3 times daily. Symbicort. Follow-up with Dr. Martinez -Acute hypoxic respiratory failure from pneumonia: Better Now down to 2 L of oxygen -Chronic hypoxic respiratory failure. 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 Patient has designated his niece as a medical POA when she is not able to take decisions. Her overall medical condition was discussed. Patient this point is not sure about remaining full code versus DNR. Clinical condition was discussed. At this point patient to remain full code and will she is seen by tomorrow if she wishes to be a DNR. 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 History of Any Multi-Drug Resistant Organisms: None Reported Additional Past Surgical History / Comment(s): previous draining fluid around heart 10 yrs ago per pt Past Anesthesia/Blood Transfusion Reactions: No Reported Reaction Past Psychological History: No Psychological Hx Reported, Anxiety, Depression Smoking Status: Former smoker Past Alcohol Use History: None Reported Past Drug Use History: None Reported Plan - Discharge Summary Discharge Rx Participant: No New Discharge Prescriptions: New cefUROXime axetiL [Ceftin] 500 mg PO BID 1 Days #8 tab Ipratropium-Albuterol Nebulize [Duoneb 0.5 mg-3 mg/3 ml Soln] 3 ml INHALATION TID #90 each Budesonide/Formoterol Fumarate [Symbicort 160-4.5 Mcg Inhaler] 1 puff INHALATION BID #10.2 gm Continue [place]-3/Dha/Epa/Fish Oil [Fish Oil 1,000 mg Softgel] 4 cap PO DAILY prednisoLONE ACETATE 1% OPHTH [Pred Forte 1%] 2 drops BOTH EYES BID Gabapentin [Neurontin] 200 mg PO HS Esomeprazole Magnesium [NexIUM] 40 mg PO DAILY Magnesium Oxide [Mag-Ox] 800 mg PO HS Levothyroxine Sodium [Synthroid] 100 mcg PO DAILY Albuterol Sulfate [Ventolin HFA] 2 puff INHALATION RT-QID PRN PRN Reason: Shortness Of Breath Ipratropium [place] [Ipratropium [place]aka 0.03%] 2 spray EA NOSTRIL BID Candesartan Cilexetil 8 mg PO DAILY Atorvastatin Calcium [Lipitor] 40 mg PO HS Amiodarone [Cordarone] 100 mg PO DAILY Changed guaiFENesin [Mucinex] 600 mg PO TID #0 Discontinued Tiotropium [place]aka [Spiriva] 1 cap INHALATION RT-DAILY Loratadine [Alavert] 10 mg PO DAILY Discharge Medication List Albuterol Sulfate [Ventolin HFA] 2 puff INHALATION RT-QID PRN 02/28/24 [History] Amiodarone [Cordarone] 100 mg PO DAILY 02/28/24 [History] Atorvastatin Calcium [Lipitor] 40 mg PO HS 02/28/24 [History] Candesartan Cilexetil 8 mg PO DAILY 02/28/24 [History] Esomeprazole Magnesium [NexIUM] 40 mg PO DAILY 02/28/24 [History] Gabapentin [Neurontin] 200 mg PO HS 02/28/24 [History] Ipratropium [place] [Ipratropium [place] 0.03%] 2 spray EA NOSTRIL BID 02/28/24 [History] Levothyroxine Sodium [Synthroid] 100 mcg PO DAILY 02/28/24 [History] Magnesium Oxide [Mag-Ox] 800 mg PO HS 02/28/24 [History] [place]-3/Dha/Epa/Fish Oil [Fish Oil 1,000 mg Softgel] 4 cap PO DAILY 02/28/24 [History] prednisoLONE ACETATE 1% OPHTH [Pred Forte 1%] 2 drops BOTH EYES BID 02/28/24 [History] Budesonide/Formoterol Fumarate [Symbicort 160-4.5 Mcg Inhaler] 1 puff INHALATION BID #10.2 gm 03/03/24 [Rx] Ipratropium-Albuterol Nebulize [Duoneb 0.5 mg-3 mg/3 ml Soln] 3 ml INHALATION TID #90 each 03/03/24 [Rx] cefUROXime axetiL [Ceftin] 500 mg PO BID 1 Days #8 tab 03/03/24 [Rx] guaiFENesin [Mucinex] 600 mg PO TID #0 03/03/24 [Rx] Follow up Appointment(s)/Referral(s): Javier Martinez MD [STAFF PHYSICIAN] - 03/20/24 1:30 pm Kian Ford NPC [Primary Care Provider] - 03/05/24 (Office will call Sunday with the time) [facility] [NON-STAFF] - 1-2 Days ([facility] will call you to schedule your in home nursing and physical therapy visits. ) Activity/Diet/Wound Care/Special Instructions: [email or web address] [facility] [employer] is your new oxygen supplier. Call [phone] with questions about your oxygen and to service your concentrator. Discharge Disposition: HOME WITH HOME HEALTH SERVICES
== END 2024-03-03 15:44 | disposition home health service (06) | DRG 193 ==
LOC: EC 19:07 → 4SSUR 23:45 → OBSVTOIN 23:45 → 4SSUR 23:52
PROVIDERS: ADMIT Hospitalist; ATTEND Hospitalist
DX: J18.9 Pneumonia, unspecified organism (principal); J96.21 Acute and chronic respiratory failure with hypoxia; J44.0 Chronic obstructive pulmonary disease with (acute) lower respiratory infection; J44.1 Chronic obstructive pulmonary disease with (acute) exacerbation; Z99.81 Dependence on supplemental oxygen; E03.9 Hypothyroidism, unspecified; E78.5 Hyperlipidemia, unspecified; I10 Essential (primary) hypertension; I48.91 Unspecified atrial fibrillation; I70.8 Atherosclerosis of other arteries; K21.9 Gastro-esophageal reflux disease without esophagitis; M19.90 Unspecified osteoarthritis, unspecified site; I69.398 Other sequelae of cerebral infarction; R20.0 Anesthesia of skin; Z79.890 Hormone replacement therapy; Z79.899 Other long term (current) drug therapy; Z87.891 Personal history of nicotine dependence; Z88.6 Allergy status to analgesic agent; Z88.8 Allergy status to other drugs, medicaments and biological substances; Z82.49 Family history of ischemic heart disease and other diseases of the circulatory system
CPT/HCPCS: 36415; 70450; 70496; 70498; 71046; 80053; 81003; 84145; 84484; 85025; 85610; 87636; 93005; 94640; 94667; 94760; 96361; 96365; 96366; 96368; 96375; 99285

== ENCOUNTER 2024-09-18 22:37 | Inpatient (IN) | payer MEDICARE ==
[2024-09-18 23:07] LABS: Basophils # (A) 0.03 10*3/uL (0.00-0.10); Basophils % (A) 0.4 %; Eosinophils # (A) 0.14 10*3/uL (0.04-0.35); Eosinophils % (A) 1.9 %; HCT 31.2 % (37.2-46.3); HGB 10.5 g/dL (12.0-15.0); Lymphocytes # (A) 0.37 10*3/uL (0.90-5.00); Lymphocytes % (A) 4.9 %; MCH 37.1 pg (27.0-32.0); MCHC 33.7 g/dL (32.0-37.0); MCV 110.2 fL (80.0-97.0); Mean Platelet Volume 9.5 fL (9.5-12.2); Monocytes # (A) 0.45 10*3/uL (0.20-1.00); Neutrophils # (A) 6.51 10*3/uL (1.80-7.70); Neutrophils % (A) 86.5 %; Platelet Count 155 10*3/uL (140-440); RBC 2.83 10*6/uL (4.10-5.20); RDW 12.2 % (11.5-14.5); WBC 7.52 10*3/uL (4.50-10.00)
[2024-09-18 23:20] LABS: ALT 16 U/L (4-34); AST 33 U/L (14-36); African American GFR (CKD) 89 (>60 ml/min/1.73 sqM); Albumin 3.5 g/dL (3.5-5.0); Alkaline Phosphatase 69 U/L (38-126); Anion Gap 7 mmol/L; Blood Urea Nitrogen 16 mg/dL (7-17); Calcium 9.4 mg/dL (8.4-10.2); Carbon Dioxide 31 mmol/L (22-30); Chloride 88 mmol/L (98-107); Glucose 97 mg/dL (74-99); Magnesium 1.8 mg/dL (1.6-2.3); Non-African American GFR(CKD) 77 (>60 ml/min/1.73 sqM); Potassium 4.9 mmol/L (3.5-5.1); Sodium 126 mmol/L (137-145); Total Bilirubin 0.4 mg/dL (0.2-1.3); Total Protein 5.7 g/dL (6.3-8.2)
[2024-09-18 23:27] LABS: Prothrombin Time 10.9 sec (10.0-12.5)
[2024-09-18 23:43] LABS: Influenza A Not Detected (Not Detectd); Influenza B Not Detected (Not Detectd); RSV Not Detected (Not Detectd)
--- NOTE | 2024-09-19 00:15 | XR ---
EXAM: XR Chest, 2 Views CLINICAL HISTORY: ITS.REASON XR Reason: Weakness TECHNIQUE: Frontal and lateral views of the chest. COMPARISON: CXR 02/28/2024. FINDINGS: Lungs: Consolidations at the lung bases, correlate for pneumonia versus atelectasis. Pleural space: Unremarkable. No pneumothorax. Heart: Cardiomegaly. Mediastinum: Large retrocardiac hiatal hernia. Bones/joints: Unremarkable. Vasculature: Calcified aorta. IMPRESSION: 1. Consolidations at the lung bases, correlate for pneumonia versus atelectasis. 2. Large retrocardiac hiatal hernia.
[2024-09-19] MEDS ORDERED: NALOXONE 0.4 MG/ML 1 ML VIAL IV PRN ×2 (00:18→01:09)
[2024-09-19 00:26] LABS: Appearance,Urine Clear (Clear); Bilirubin,Urine Negative (Negative); Blood,Urine Trace (Negative); Color,Urine Colorless; Glucose,Urine (UA) Negative (Negative); Hyaline Casts,Urine 3 /lpf (0-2); Ketones,Urine Negative (Negative); Leukocyte Esterase,Urine Negative (Negative); Nitrite,Urine Negative (Negative); Protein,Urine Negative (Negative); RBC,Urine 1 /hpf (0-5); Specific Gravity,Urine 1.011 (1.001-1.035); Squamous Epithelial Cell,Urine <1 /hpf (0-4); Urobilinogen,Urine <2.0 mg/dL (<2.0); WBC,Urine <1 /hpf (0-5)
--- NOTE | 2024-09-19 00:31 | P.HPIM ---
History of Present Illness H&P Date: 09/19/24 Chief Complaint: weakness Ms. Luciano is a 84 YO F with a pmhx of copd, chronic hypoxic respiratory failure on 4 L NC, and hypothyroid dz She reports that she was in her usual state of health up until 2 weeks prior. She reports that she felt like she had a urinary tract infection had called her PCP and she was on an unknown antibiotic to the pharmacy. She reports this was near September 07. She reports that she had finished the course of antibiotics however reports that last week a urinalysis with culture was drawn however this was not done initially. She reports that there was 2 strains of bacteria and there was concern that the first antibiotic did not cover for this. She was given levofloxacin and Lasix. She reports that she had taken both. She is not sure why she was prescribed Lasix. She reports that she took both medications today and felt very weak. She then presented to the hospital for further evaluation When she presented to the hospital her white blood cell count was 7.52, hgb of 10.5, mcv of 110. platelet count of 155. cmp had shown a na level of 125. cr was 0.72. lactic acid ws 2.2 rsv covidflu wer engeative. cxr had shwon no acute process. Review of Systems Pertinent positives and negatives as discussed in HPI, a complete review of systems was performed and all other systems are negative. 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, Carotid blockage History of Any Multi-Drug Resistant Organisms: None Reported Additional Past Surgical History / Comment(s): previous draining fluid around heart 10 yrs ago per pt Past Anesthesia/Blood Transfusion Reactions: No Reported Reaction Past Psychological History: No Psychological Hx Reported, Anxiety, Depression Smoking Status: Former smoker Past Alcohol Use History: None Reported Past Drug Use History: None Reported - Past Family History Father Family Medical History: Coronary Artery Disease (CAD) Brother(s) Family Medical History: Cancer Medications and Allergies Home Medications Medication Instructions Recorded Confirmed Type Albuterol Sulfate [Ventolin HFA] 2 puff INHALATION RT-QID PRN 02/28/24 02/28/24 History Amiodarone [Cordarone] 100 mg PO DAILY 02/28/24 02/28/24 History Atorvastatin Calcium [Lipitor] 40 mg PO HS 02/28/24 02/28/24 History Candesartan Cilexetil 8 mg PO DAILY 02/28/24 02/28/24 History Esomeprazole Magnesium [NexIUM] 40 mg PO DAILY 02/28/24 02/28/24 History Gabapentin [Neurontin] 200 mg PO HS 02/28/24 02/28/24 History Ipratropium [place] [Ipratropium 2 spray EA NOSTRIL BID 02/28/24 02/28/24 History [place] 0.03%] Levothyroxine Sodium [Synthroid] 100 mcg PO DAILY 02/28/24 02/28/24 History Magnesium Oxide [Mag-Ox] 800 mg PO HS 02/28/24 02/28/24 History [place]-3/Dha/Epa/Fish Oil [Fish Oil 4 cap PO DAILY 02/28/24 02/28/24 History 1,000 mg Softgel] prednisoLONE ACETATE 1% OPHTH 2 drops BOTH EYES BID 02/28/24 02/28/24 History [Pred Forte 1%] Budesonide/Formoterol Fumarate 1 puff INHALATION BID #10.2 gm 03/03/24 Rx [Symbicort 160-4.5 Mcg Inhaler] Ipratropium-Albuterol Nebulize 3 ml INHALATION TID #90 each 03/03/24 Rx [Duoneb 0.5 mg-3 mg/3 ml Soln] cefuroxime axetiL [Ceftin] 500 mg PO BID 1 Days #8 tab 03/03/24 Rx guaiFENesin [Mucinex] 600 mg PO TID #0 03/03/24 02/28/24 Rx Allergies Allergy/AdvReac Type Severity Reaction Status Date / Time aspirin AdvReac 325mg Verified 09/18/24 22:45 causes abdominal pain olmesartan [From Benicar] AdvReac "makes her Verified 09/18/24 22:45 crazy" Physical Exam Vitals: Vital Signs Temp Pulse Resp BP Pulse Ox 09/18/24 23:59 68 16 132/76 92 L 09/18/24 22:38 98.0 F 79 18 164/79 90 L Intake and Output 09/18/24 09/18/24 09/19/24 14:59 22:59 06:59 Other: Weight 44.452 kg General: elderly frail, appears stated age Derm: warm, dry Head: atraumatic, normocephalic, symmetric Eyes: EOMI, no lid lag, anicteric sclera, pupils equal round reactive to light ENT: Nose and ears atraumatic, no thrush, no pharyngeal erythema Neck: No thyromegaly, no cervical lymphadenopathy, trachea midline, supple Mouth: no lip lesion, mucus membranes moist Cardiovascular: S1S2 reg, no murmur, positive posterior tibial pulse bilateral, no edema, capillary refill less than 2 seconds Lungs: clear to ascultation bilateral, no ronchi, no rales, no wheeze, no accessory muscle use on NC Abdominal: soft, nontender to palpation, no guarding, no appreciable organomegaly, normal bowel sounds Ext: no gross muscle atrophy, muscle strength muscle strength 5 out of 5 in all 4 extremities, no contractures Neuro: CN II-XI grossly intact, light touch intact all 4 extremities, finger to nose within normal limits, Psych: Alert, oriented, appropriate affect Results CBC & Chem 7: 09/18/24 22:58 09/18/24 22:58 Labs: Abnormal Lab Results - Last 24 Hours (Table) 09/18/24 09/18/24 09/18/24 Range/Units 22:58 22:58 22:58 RBC 2.83 L (4.10-5.20) 10*6/uL Hgb 10.5 L (12.0-15.0) g/dL Hct 31.2 L (37.2-46.3) % MCV 110.2 H (80.0-97.0) fL MCH 37.1 H (27.0-32.0) pg Sodium 126 L (137-145) mmol/L Chloride 88 L (98-107) mmol/L Carbon Dioxide 31 H (22-30) mmol/L Plasma Lactic Acid [place] 2.2 H* (0.7-2.0) mmol/L Total Protein 5.7 L (6.3-8.2) g/dL Assessment and Plan Assessment: #) Weakness, probably from lasix use. unclear as to why lasix was prescribed in outpatient setting. no history of leg edema or heart failure symptoms. would avoid further usage of lasix #) ?cystitis. reported was prescribed antibiotics earlier this month for cystitis however no ua/urine culture was drawn. she denied any dysuria. reports had a ua+culture performed last week. unclear as to organisms. was precribed levofloxacin today. would continue for 4 more doses for a total of 5 days #) lactic acidosis, probably type B. no signs of any sirs criteria. trend #) hyponatremia, check serum osmolality to confirm hypotonic. from ?poor solute intake. r/o hypothyroid dz or adrenal insffuciency. add 2 L fluid restrcition #) COpd on 2 L NC at baseline. continue home symbicort inhaler bid and nc to maintain spo2>90% #) GERD continue home esomprazole 40 mg daily #) neuropathy continue gabapentin 200 mg hs #) hypothyroid dz continue home levothyroxine 100 mcg daily #) Macrocytosis with anemia, check folic acid and b12 level #) Hld continue home atorvastaint 40 mg hs dvt ppx: lovenox 40 mg daily gi ppx: esomprrazole spoke with family at bedside in er room 4
--- NOTE | 2024-09-19 00:40 | ED ---
Weakness HPI - General Chief complaint: Weakness Stated complaint: Weakness Time Seen by Provider: 09/18/24 22:40 Source: patient, EMS Mode of arrival: EMS Limitations: no limitations - History of Present Illness Initial comments: 84-year-old female with past medical history of COPD on 2 L home O2 who presents emergency department reporting weakness. States that she has had a urinary tract infection. She was started on 1 antibiotic by her primary care however they received culture back and showed that the antibiotic would not work. Today the patient was started on Levaquin. She was also started on 20 mg of Lasix but the patient does not know why. She took 1 of each of these new medications this evening. States she was so weak this evening that she could not ambulate to the bathroom. Her family member had her helper get onto the toilet. Then could not get off. EMS was called due to her significant weakness elation. She states that in her arms and legs. Denies any lateralizing weakness. Does have a history of stroke. She denies any fevers. No nausea or vomiting. No chest pain. She denies any difficulty breathing from her baseline. Admits to a chronic cough without any changes. Patient reports to being over treated for p neumonia and is adamantly denying any symptoms of pneumonia at this time. No other alleviating, precipitating or modifying factors - Related Data Home Medications Medication Instructions Recorded Confirmed Albuterol Sulfate [Ventolin HFA] 2 puff INHALATION RT-QID PRN 02/28/24 02/28/24 Amiodarone [Cordarone] 100 mg PO DAILY 02/28/24 02/28/24 Atorvastatin Calcium [Lipitor] 40 mg PO HS 02/28/24 02/28/24 Candesartan Cilexetil 8 mg PO DAILY 02/28/24 02/28/24 Esomeprazole Magnesium [NexIUM] 40 mg PO DAILY 02/28/24 02/28/24 Gabapentin [Neurontin] 200 mg PO HS 02/28/24 02/28/24 Ipratropium Sharon [Ipratropium 2 spray EA NOSTRIL BID 02/28/24 02/28/24 Sharon 0.03%] Levothyroxine Sodium [Synthroid] 100 mcg PO DAILY 02/28/24 02/28/24 Magnesium Oxide [Mag-Ox] 800 mg PO HS 02/28/24 02/28/24 Tonica-3/Dha/Epa/Fish Oil [Fish Oil 4 cap PO DAILY 02/28/24 02/28/24 1,000 mg Softgel] prednisoLONE ACETATE 1% OPHTH 2 drops BOTH EYES BID 02/28/24 02/28/24 [Pred Forte 1%] Previous Rx's Medication Instructions Recorded Budesonide/Formoterol Fumarate 1 puff INHALATION BID #10.2 gm 03/03/24 [Symbicort 160-4.5 Mcg Inhaler] Ipratropium-Albuterol Nebulize 3 ml INHALATION TID #90 each 03/03/24 [Duoneb 0.5 mg-3 mg/3 ml Soln] cefuroxime axetiL [Ceftin] 500 mg PO BID 1 Days #8 tab 03/03/24 guaiFENesin [Mucinex] 600 mg PO TID #0 03/03/24 Allergies Allergy/AdvReac Type Severity Reaction Status Date / Time aspirin AdvReac 325mg Verified 09/18/24 22:45 causes abdominal pain olmesartan [From Benicar] AdvReac "makes her Verified 09/18/24 22:45 crazy" Review of Systems ROS Statement: Those systems with pertinent positive or pertinent negative responses have been documented in the HPI. ROS Other: All systems not noted in ROS Statement are negative. 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, Carotid blockage History of Any Multi-Drug Resistant Organisms: None Reported Additional Past Surgical History / Comment(s): previous draining fluid around heart 10 yrs ago per pt Past Anesthesia/Blood Transfusion Reactions: No Reported Reaction Past Psychological History: No Psychological Hx Reported, Anxiety, Depression Smoking Status: Former smoker Past Alcohol Use History: None Reported Past Drug Use History: None Reported - Past Family History Father Family Medical History: Coronary Artery Disease (CAD) Brother(s) Family Medical History: Cancer General Exam Limitations: no limitations General appearance: alert, in no apparent distress Head exam: Present: atraumatic, normocephalic, normal inspection Eye exam: Present: normal appearance, PERRL, EOMI. Absent: scleral icterus, conjunctival injection, periorbital swelling ENT exam: Present: normal exam, mucous membranes moist Neck exam: Present: normal inspection. Absent: tenderness, meningismus, lymphadenopathy Respiratory exam: Present: decreased breath sounds. Absent: respiratory d istress, wheezes, rales, rhonchi, stridor Cardiovascular Exam: Present: regular rate, normal rhythm, normal heart sounds. Absent: systolic murmur, diastolic murmur, rubs, gallop, clicks GI/Abdominal exam: Present: soft, normal bowel sounds. Absent: distended, tenderness, guarding, rebound, rigid Extremities exam: Present: normal inspection, full ROM, normal capillary refill. Absent: tenderness, pedal edema, joint swelling, calf tenderness Back exam: Present: normal inspection Neurological exam: Present: alert, oriented X3, CN II-XII intact Psychiatric exam: Present: normal affect, normal mood Skin exam: Present: warm, dry, intact, normal color. Absent: rash Course Vital Signs 09/18/24 09/18/24 22:38 23:59 Temperature 98.0 F Pulse Rate 79 68 Respiratory 18 16 Rate Blood Pressure 164/79 132/76 O2 Sat by Pulse 90 L 92 L Oximetry Medical Decision Making - Medical Decision Making Was pt. sent in by a medical professional or institution (, PA, COM[employer]ED G[employer] EQUIPMENT MECHANIC, urgent care, hospital, or [facility]...) When possible be specific @ -No Did you speak to anyone other than the patient for history (EMS, parent, family, police, friend...)? What history was obtained from this source @ -Spoke with the patient's family member for history Did you review nursing and triage notes (agree or disagree)? Why? @ -I reviewed and agree with nursing and triage notes Were old charts reviewed (outside hosp., previous admission, EMS record, old EKG, old radiological studies, urgent care reports/EKG's, [facility] records)? Report findings @ -No old charts were reviewed Differential Diagnosis (chest pain, altered mental status, abdominal pain women, abdominal pain men, vaginal bleeding, weakness, fever, dyspnea, syncope, headache, dizziness, GI bleed, back pain, seizure, CVA, palpatations, mental hea lth, musculoskeletal)? @ -Differential Weakness: Hypoglycemia, shock, sepsis, hyponatremia, anemia, infection, IN, ETOH, adverse medicine reaction, overdose, stroke, this is not meant to be an all-inclusive list. EKG interpreted by me (3pts min.). @ -Yes and demonstrates sinus rhythm with a rate of 71. IN interval 204. QRS 120. QTc of 435. No acute ST segment elevation. Left bundle branch block X-rays interpreted by me (1pt min.). @ -Yes which demonstrates hiatal hernia and atelectasis CT interpreted by me (1pt min.). @ -None done U/S interpreted by me (1pt. min.). @ -None done What testing was considered but not performed or refused? (CT, X-rays, U/S, labs)? Why? @ -None What meds were considered but not given or refused? Why? @ -None Did you discuss the management of the patient with other professionals (professionals i.e. , PA, COM[employer]ED [employer] EQUIPMENT MECHANIC, lab, RT, psych nurse, social media senior associate, city council member, teacher, ordnance officer, egg caser)? Give summary @ -With Dr. Zarate who will admit the patient Was smoking cessation discussed for >3mins.? @ -No Was critical care preformed (if so, how long)? @ -No Were there social determinants of health that impacted care today? How? (Homelessness, low income, unemployed, alcoholism, drug addiction, transportation, low edu. Level, literacy, decrease access to med. care, retirement, rehab)? @ -No Was there de-escalation of care discussed even if they declined (Discuss DNR or withdrawal of care, Hospice)? DNR status @ -No What co-morbidities impacted this encounter? (DM, HTN, Smoking, COPD, CAD, Cancer, CVA, ARF, Chemo, Hep., AIDS, mental health diagnosis, sleep apnea, morbid obesity)? @ -COPD Was patient admitted / discharged? Hospital course, mention meds given and route, prescriptions, significant lab abnormalities, going to OR and other pertinent info. @ -Upon arrival patient seen and evaluated in room 4. Thorough history and physical exam was performed. IV was established and laboratory studies are conducted. Chest x-ray was performed. Patient was hyponatremic. Recommended admission. Spoke with Dr. Zarate for the admission Undiagnosed new problem with uncertain prognosis? @ -No Drug Therapy requiring intensive monitoring for toxicity (Heparin, Nitro, Insulin, Cardizem)? @ -No Were any procedures done? @ -No Diagnosis/symptom? @ -Acute weakness, acute hyponatremia Acute, or Chronic, or Acute on Chronic? @ -Acute Uncomplicated (without systemic symptoms) or Complicated (systemic symptoms)? @ -Complicated Side effects of treatment? @ -No Exacerbation, Progression, or Severe Exacerbation? @ -No Poses a threat to life or bodily function? How? (Chest pain, USA, IN, pneumonia, PE, COPD, DKA, ARF, appy, cholecystitis, CVA, Diverticulitis, Homicidal, Suicidal, threat to staff... and all critical care pts) @ -No - Lab Data Result diagrams: 09/18/24 22:58 09/18/24 22:58 Lab Results 09/18/24 09/18/24 09/18/24 Range/Units 22:58 22:58 22:58 WBC 7.52 (4.50-10.00) 10*3/uL RBC 2.83 L (4.10-5.20) 10*6/uL Hgb 10.5 L (12.0-15.0) g/dL Hct 31.2 L (37.2-46.3) % MCV 110.2 H (80.0-97.0) fL MCH 37.1 H (27.0-32.0) pg MCHC 33.7 (32.0-37.0) g/dL Plt Count 155 (140-440) 10*3/uL MPV 9.5 (9.5-12.2) fL Immature Gran % (Auto) 0.3 % Neutrophils % 86.5 % Lymphocytes % 4.9 % Monocytes % 6.0 % Eosinophils % 1.9 % Basophils % 0.4 % Immature Gran # 0.02 (0.00-0.04) 10*3/uL Neutrophils # 6.51 (1.80-7.70) 10*3/uL Lymphocytes # 0.37 L (0.90-5.00) 10*3/uL Monocytes # 0.45 (0.20-1.00) 10*3/uL Eosinophils # 0.14 (0.04-0.35) 10*3/uL Basophils # 0.03 (0.00-0.10) 10*3/uL Manual Slide Review Performed PT 10.9 (10.0-12.5) sec INR 1.0 (<1.2) APTT 23.0 (22.0-30.0) sec Sodium 126 L (137-145) mmol/L Potassium 4.9 (3.5-5.1) mmol/L Chloride 88 L (98-107) mmol/L Carbon Dioxide 31 H (22-30) mmol/L Anion Gap 7 mmol/L BUN 16 (7-17) mg/dL Creatinine 0.72 (0.52-1.04) mg/dL Est GFR (CKD-EPI)AfAm 89 (>60 ml/min/1.73 sqM) Est GFR (CKD-EPI)NonAf 77 (>60 ml/min/1.73 sqM) Glucose 97 (74-99) mg/dL Lactic Ac Sepsis Rflx Plasma Lactic Acid Anastacio (0.7-2.0) mmol/L Calcium 9.4 (8.4-10.2) mg/dL Magnesium 1.8 (1.6-2.3) mg/dL Total Bilirubin 0.4 (0.2-1.3) mg/dL AST 33 (14-36) U/L ALT 16 (4-34) U/L Alkaline Phosphatase 69 (38-126) U/L Troponin I (0.000-0.034) ng/mL Total Protein 5.7 L (6.3-8.2) g/dL Albumin 3.5 (3.5-5.0) g/dL Urine Color Urine Appearance (Clear) Urine pH (5.0-8.0) Ur Specific [place] (1.001-1.035) Urine Protein (Negative) Urine Glucose (UA) (Negative) Urine Ketones (Negative) Urine Blood (Negative) Urine Nitrite (Negative) Urine Bilirubin (Negative) Urine Urobilinogen (<2.0) mg/dL Ur Leukocyte Esterase (Negative) Urine RBC (0-5) /hpf Urine WBC (0-5) /hpf Ur Squamous Epith Cells (0-4) /hpf Hyaline Casts (0-2) /lpf Influenza Type A (PCR) (Not Detectd) Influenza Type B (PCR) (Not Detectd) RSV (PCR) (Not Detectd) SARS-CoV-2 (PCR) (Not Detectd) 09/18/24 09/18/24 09/18/24 Range/Units 22:58 22:58 23:00 WBC (4.50-10.00) 10*3/uL RBC (4.10-5.20) 10*6/uL Hgb (12.0-15.0) g/dL Hct (37.2-46.3) % MCV (80.0-97.0) fL MCH (27.0-32.0) pg MCHC (32.0-37.0) g/dL Plt Count (140-440) 10*3/uL MPV (9.5-12.2) fL Immature Gran % (Auto) % Neutrophils % % Lymphocytes % % Monocytes % % Eosinophils % % Basophils % % Immature Gran # (0.00-0.04) 10*3/uL Neutrophils # (1.80-7.70) 10*3/uL Lymphocytes # (0.90-5.00) 10*3/uL Monocytes # (0.20-1.00) 10*3/uL Eosinophils # (0.04-0.35) 10*3/uL Basophils # (0.00-0.10) 10*3/uL Manual Slide Review PT (10.0-12.5) sec INR (<1.2) APTT (22.0-30.0) sec Sodium (137-145) mmol/L Potassium (3.5-5.1) mmol/L Chloride (98-107) mmol/L Carbon Dioxide (22-30) mmol/L Anion Gap mmol/L BUN (7-17) mg/dL Creatinine (0.52-1.04) mg/dL Est GFR (CKD-EPI)AfAm (>60 ml/min/1.73 sqM) Est GFR (CKD-EPI)NonAf (>60 ml/min/1.73 sqM) Glucose (74-99) mg/dL Lactic Ac Sepsis Rflx Plasma Lactic Acid Anastacio 2.2 H* (0.7-2.0) mmol/L Calcium (8.4-10.2) mg/dL Magnesium (1.6-2.3) mg/dL Total Bilirubin (0.2-1.3) mg/dL AST (14-36) U/L ALT (4-34) U/L Alkaline Phosphatase (38-126) U/L Troponin I <0.012 (0.000-0.034) ng/mL Total Protein (6.3-8.2) g/dL Albumin (3.5-5.0) g/dL Urine Color Urine Appearance (Clear) Urine pH (5.0-8.0) Ur Specific [place] (1.001-1.035) Urine Protein (Negative) Urine Glucose (UA) (Negative) Urine Ketones (Negative) Urine Blood (Negative) Urine Nitrite (Negative) Urine Bilirubin (Negative) Urine Urobilinogen (<2.0) mg/dL Ur Leukocyte Esterase (Negative) Urine RBC (0-5) /hpf Urine WBC (0-5) /hpf Ur Squamous Epith Cells (0-4) /hpf Hyaline Casts (0-2) /lpf Influenza Type A (PCR) Not Detected (Not Detectd) Influenza Type B (PCR) Not Detected (Not Detectd) RSV (PCR) Not Detected (Not Detectd) SARS-CoV-2 (PCR) Not Detected (Not Detectd) 09/18/24 09/18/24 Range/Units 23:22 23:54 WBC (4.50-10.00) 10*3/uL RBC (4.10-5.20) 10*6/uL Hgb (12.0-15.0) g/dL Hct (37.2-46.3) % MCV (80.0-97.0) fL MCH (27.0-32.0) pg MCHC (32.0-37.0) g/dL Plt Count (140-440) 10*3/uL MPV (9.5-12.2) fL Immature Gran % (Auto) % Neutrophils % % Lymphocytes % % Monocytes % % Eosinophils % % Basophils % % Immature Gran # (0.00-0.04) 10*3/uL Neutrophils # (1.80-7.70) 10*3/uL Lymphocytes # (0.90-5.00) 10*3/uL Monocytes # (0.20-1.00) 10*3/uL Eosinophils # (0.04-0.35) 10*3/uL Basophils # (0.00-0.10) 10*3/uL Manual Slide Review PT (10.0-12.5) sec INR (<1.2) APTT (22.0-30.0) sec Sodium (137-145) mmol/L Potassium (3.5-5.1) mmol/L Chloride (98-107) mmol/L Carbon Dioxide (22-30) mmol/L Anion Gap mmol/L BUN (7-17) mg/dL Creatinine (0.52-1.04) mg/dL Est GFR (CKD-EPI)AfAm (>60 ml/min/1.73 sqM) Est GFR (CKD-EPI)NonAf (>60 ml/min/1.73 sqM) Glucose (74-99) mg/dL Lactic Ac Sepsis Rflx Y Plasma Lactic Acid Anastacio (0.7-2.0) mmol/L Calcium (8.4-10.2) mg/dL Magnesium (1.6-2.3) mg/dL Total Bilirubin (0.2-1.3) mg/dL AST (14-36) U/L ALT (4-34) U/L Alkaline Phosphatase (38-126) U/L Troponin I (0.000-0.034) ng/mL Total Protein (6.3-8.2) g/dL Albumin (3.5-5.0) g/dL Urine Color Colorless Urine Appearance Clear (Clear) Urine pH 7.0 (5.0-8.0) Ur Specific [place] 1.011 (1.001-1.035) Urine Protein Negative (Negative) Urine Glucose (UA) Negative (Negative) Urine Ketones Negative (Negative) Urine Blood Trace H (Negative) Urine Nitrite Negative (Negative) Urine Bilirubin Negative (Negative) Urine Urobilinogen <2.0 (<2.0) mg/dL Ur Leukocyte Esterase Negative (Negative) Urine RBC 1 (0-5) /hpf Urine WBC <1 (0-5) /hpf Ur Squamous Epith Cells <1 (0-4) /hpf Hyaline Casts 3 H (0-2) /lpf Influenza Type A (PCR) (Not Detectd) Influenza Type B (PCR) (Not Detectd) RSV (PCR) (Not Detectd) SARS-CoV-2 (PCR) (Not Detectd) Disposition Clinical Impression: Generalized weakness, Hyponatremia Disposition: ADMITTED IP TO THIS HOSP Condition: Stable Is patient prescribed a controlled substance at d/c from ED?: No Time of Disposition: 00:40 Decision to Admit Reason: Admit from EC Decision Date: 09/19/24 Decision Time: 00:40
[2024-09-19] MEDS: ACETAMINOPHEN TAB 325 MG TAB PO STA (02:22)
[2024-09-19] MEDS: SODIUM CHLORIDE 0.9% 500 ML 500 ML IV ONE (02:44)
[2024-09-19] MEDS: LEVOFLOXACIN 750 MG TAB PO SCH ×2 (06:35→09:19)
[2024-09-19] MEDS: LEVOTHYROXINE 100 MCG TAB PO SCH (06:38)
[2024-09-19] MEDS: SYMBICORT 160-4.5 MCG INHALER INHALATION SCH (08:28)
[2024-09-19 08:47] LABS: BUN/Creat Ratio 20.71 Ratio (12.00-20.00); Blood Urea Nitrogen 14.5 mg/dL (9.0-27.0); Calcium 9.1 mg/dL (8.7-10.3); Carbon Dioxide 24.8 mmol/L (21.6-31.8); Chloride 92 mmol/L (96-109); Glucose 80 mg/dL (70-110); Potassium 5.2 mmol/L (3.5-5.5); Sodium 131 mmol/L (135-145); T4, Free (Free Thyroxine) 1.49 ng/dL (0.80-1.80)
[2024-09-19] MEDS ORDERED: PANTOPRAZOLE 40 MG TABLET PO SCH (09:00)
[2024-09-19] MEDS ORDERED: AMIODARONE 100 MG TAB PO SCH (09:00)
[2024-09-19] MEDS ORDERED: PREDNISOLONE ACETATE BOTH EYES SCH (09:00)
[2024-09-19] MEDS: LOSARTAN 50 MG TAB PO SCH (09:24)
[2024-09-19] MEDS: guaiFENesin 600 MG TABLET.ER PO SCH (09:25)
[2024-09-19] MEDS: PANTOPRAZOLE 40 MG TABLET PO SCH (09:25)
[2024-09-19] MEDS: prednisoLONE ACETATE 1% OPHTH DROPS 5 ML BTL BOTH EYES SCH (09:26)
[2024-09-19] MEDS: ENOXAPARIN 40 MG/0.4 ML SYRINGE SQ SCH (09:28)
[2024-09-19 10:18] LABS: African American GFR (CKD) >90 (>60 ml/min/1.73 sqM); Anion Gap 5 mmol/L; Blood Urea Nitrogen 14 mg/dL (7-17); Calcium 9.6 mg/dL (8.4-10.2); Carbon Dioxide 32 mmol/L (22-30); Chloride 91 mmol/L (98-107); Glucose 79 mg/dL (74-99); Non-African American GFR(CKD) 81 (>60 ml/min/1.73 sqM); Potassium 4.8 mmol/L (3.5-5.1); Sodium 128 mmol/L (137-145)
[2024-09-19] MEDS: IPRATROPIUM BROMIDE 0.06% NASAL SPRAY (15 ML) EA NOSTRIL SCH (11:49)
--- NOTE | 2024-09-19 14:55 | P.PN ---
Subjective Principal diagnosis: Hospital Course: An 84-year-old female with medical history of chronic hypoxic respiratory failure secondary COPD on 2L home oxygen, hypothyroidism, hypertension, GERD, hyperlipidemia, who presents to the ER with generalized weakness. She reports that she was in her usual state of health up until 2 weeks prior. She reports that she felt like she had a urinary tract infection had called her PCP and she was on an unknown antibiotic to the pharmacy. She reports this was near September 07. She reports that she had finished the course of antibiotics however reports that last week a urinalysis with culture was drawn however this was not done initially. She reports that there was 2 strains of bacteria and there was concern that the first antibiotic did not cover for this. She was given levofloxacin and Lasix. She reports that she had taken both. She is not sure why she was prescribed Lasix. She reports that she took both medications today and felt very weak. She then presented to the hospital for further evaluation When she presented to the hospital her white blood cell count was 7.52, hgb of 10.5, mcv of 110. platelet count of 155. cmp had shown a na level of 125. cr was 0.72. lactic acid ws 2.2 rsv covidflu wer engeative. cxr had shwon no acute process. 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 Patient states that she does not have any signs and symptoms of UTI, refused to complete her treatment with levofloxacin,. Complains of ongoing generalized weakness Due to worsening hyponatremia, patient will be switched to inpatient, Pertinent positives and negatives as discussed above, a complete review of systems was performed and all other systems are negative. Vitals Signs Reviewed. General: [nontoxic], [no distress], [appears at stated age] Derm: [warm], [dry] Head: [atraumatic], [normocephalic], [symmetric] Eyes: [EOMI], [no lid lag], [anicteric sclera] Mouth: [no lip lesion], [mucus membranes moist] Cardiovascular: [S1S2 reg], [no murmur] Lungs: [CTA bilateral], [no rhonchi, no rales] , [no accessory muscle use] Abdominal: [soft], [ nontender to palpation], [no guarding], [no appreciable organomegaly] Ext: [no gross muscle atrophy], [no edema], [no contractures] Neuro: [ CN II-XI grossly intact], [no focal neuro deficits] Psych: [Alert], [oriented], [appropriate affect] Assessment and Plan: Generalized weakness Acute euvolemic hypotonic hyponatremia likely secondary to SIADH Lactic acidosis, resolved -Fluid restriction 1500 cc, started urea 15 twice daily, nephrology consulted, appreciate recommendations, recheck BMP in the afternoon and in a.m. - Lasix was discontinued, still unclear why patient was placed on it by her PCP -Check TSH - PT OT consulted Recent UTI -Denies current symptoms, UA negative for UTI, monitor off antibiotics Chronic hypoxic respiratory failure secondary to COPD -Continue home Ventolin and Spiriva 2 puff daily Hypertension -Continue home losartan 50 mg daily Hyperlipidemia -Continue home atorvastatin 40 mg nightly Hypothyroidism -Continue home levothyroxine 75 mcg p.o. daily DVT ppx: Lovenox Code status: Full code Anticipated discharge place: TBD Anticipated discharge time: TBD Objective - Vital Signs Vital signs: Vital Signs Temp 98.2 F 09/19/24 07:58 Pulse 65 09/19/24 11:49 Resp 18 09/19/24 11:49 BP 174/93 09/19/24 11:49 Pulse Ox 98 09/19/24 11:49 FiO2 Intake & Output 09/18/24 09/19/24 09/19/24 18:59 06:59 18:59 Weight 44.452 kg - Labs CBC & Chem 7: 09/18/24 22:58 09/19/24 09:45 Labs: Abnormal Lab Results - Last 24 Hours (Table) 09/18/24 09/18/24 09/18/24 Range/Units 22:58 22:58 22:58 RBC 2.83 L (4.10-5.20) 10*6/uL Hgb 10.5 L (12.0-15.0) g/dL Hct 31.2 L (37.2-46.3) % MCV 110.2 H (80.0-97.0) fL MCH 37.1 H (27.0-32.0) pg Lymphocytes # 0.37 L (0.90-5.00) 10*3/uL Sodium 126 L (137-145) mmol/L Chloride 88 L (98-107) mmol/L Carbon Dioxide 31 H (22-30) mmol/L Anion Gap (4.00-12.00) mmol/L BUN/Creatinine Ratio (12.00-20.00) Ratio Osmolality (275-295) mOsm/kg Plasma Lactic Acid Anastacio 2.2 H* (0.7-2.0) mmol/L Total Protein 5.7 L (6.3-8.2) g/dL Vitamin B12 (200.0-944.0) pg/mL TSH (0.465-4.680) mIU/L Urine Blood (Negative) Hyaline Casts (0-2) /lpf Urine Osmolality (400-1100) mOsm/kg 09/18/24 09/18/24 09/19/24 Range/Units 23:54 23:54 01:34 RBC (4.10-5.20) 10*6/uL Hgb (12.0-15.0) g/dL Hct (37.2-46.3) % MCV (80.0-97.0) fL MCH (27.0-32.0) pg Lymphocytes # (0.90-5.00) 10*3/uL Sodium (137-145) mmol/L Chloride (98-107) mmol/L Carbon Dioxide (22-30) mmol/L Anion Gap (4.00-12.00) mmol/L BUN/Creatinine Ratio (12.00-20.00) Ratio Osmolality 268 L (275-295) mOsm/kg Plasma Lactic Acid Anastacio (0.7-2.0) mmol/L Total Protein (6.3-8.2) g/dL Vitamin B12 (200.0-944.0) pg/mL TSH (0.465-4.680) mIU/L Urine Blood Trace H (Negative) Hyaline Casts 3 H (0-2) /lpf Urine Osmolality 332 L (400-1100) mOsm/kg 09/19/24 09/19/24 Range/Units 03:14 09:45 RBC (4.10-5.20) 10*6/uL Hgb (12.0-15.0) g/dL Hct (37.2-46.3) % MCV (80.0-97.0) fL MCH (27.0-32.0) pg Lymphocytes # (0.90-5.00) 10*3/uL Sodium 131 L 128 L (137-145) mmol/L Chloride 92 L 91 L (98-107) mmol/L Carbon Dioxide 32 H (22-30) mmol/L Anion Gap 14.20 H (4.00-12.00) mmol/L BUN/Creatinine Ratio 20.71 H (12.00-20.00) Ratio Osmolality (275-295) mOsm/kg Plasma Lactic Acid Anastacio (0.7-2.0) mmol/L Total Protein (6.3-8.2) g/dL Vitamin B12 1451.0 H (200.0-944.0) pg/mL TSH 0.169 L (0.465-4.680) mIU/L Urine Blood (Negative) Hyaline Casts (0-2) /lpf Urine Osmolality (400-1100) mOsm/kg
[2024-09-19] MEDS: UREA 15 GM POWD.PACK PO SCH (15:11)
[2024-09-19] MEDS: SENNOSIDES 8.6 MG TAB PO SCH (15:21)
[2024-09-19 16:58] LABS: African American GFR (CKD) >90 (>60 ml/min/1.73 sqM); Anion Gap 7 mmol/L; Blood Urea Nitrogen 28 mg/dL (7-17); Calcium 9.7 mg/dL (8.4-10.2); Carbon Dioxide 32 mmol/L (22-30); Chloride 90 mmol/L (98-107); Glucose 84 mg/dL (74-99); Non-African American GFR(CKD) 81 (>60 ml/min/1.73 sqM); Potassium 5.1 mmol/L (3.5-5.1); Sodium 129 mmol/L (137-145)
[2024-09-19] MEDS: ATORVASTATIN 40 MG TAB PO SCH (21:01)
[2024-09-19] MEDS: GABAPENTIN 100 MG CAP PO SCH (21:01)
[2024-09-20 06:18] LABS: African American GFR (CKD) >90 (>60 ml/min/1.73 sqM); Anion Gap 8 mmol/L; Blood Urea Nitrogen 45 mg/dL (7-17); Calcium 10.1 mg/dL (8.4-10.2); Carbon Dioxide 31 mmol/L (22-30); Chloride 95 mmol/L (98-107); Glucose 90 mg/dL (74-99); Non-African American GFR(CKD) 80 (>60 ml/min/1.73 sqM); Potassium 4.4 mmol/L (3.5-5.1); Sodium 134 mmol/L (137-145)
[2024-09-20] MEDS: LEVOTHYROXINE 75 MCG TAB PO SCH (06:43)
[2024-09-20] MEDS: TIOTROPIUM 2.5 MCG INHALER INHALATION SCH (08:50)
--- NOTE | 2024-09-20 10:39 | P.NPCON ---
History of Present Illness - Reason for Consult hyponatremia - History of Present Illness Patient is an 84-year-old female with history of COPD, gastroesophageal reflux disease. Patient was recently treated for UTI as outpatient. It appears that antibiotics were changed and patient felt extremely weak and therefore came into the hospital. Blood pressure was not low on admission, in fact it was high. Serum sodium was 126 and improved to 131. Patient had received a fluid bolus. Serum sodium subsequently dropped to 128 and it was 134 today. Currently not on any IV fluids. She has an external catheter. Currently maintained on fluid restriction and patient was also started on urea 15 mg twice daily. 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, Carotid blockage History of Any Multi-Drug Resistant Organisms: None Reported Additional Past Surgical History / Comment(s): previous draining fluid around heart 10 yrs ago per pt Past Anesthesia/Blood Transfusion Reactions: No Reported Reaction Past Psychological History: No Psychological Hx Reported, Anxiety, Depression Smoking Status: Former smoker Past Alcohol Use History: None Reported Past Drug Use History: None Reported - Past Family History Father Family Medical History: Coronary Artery Disease (CAD) Brother(s) Family Medical History: Cancer Medications and Allergies Home Medications Medication Instructions Recorded Confirmed Type Albuterol Sulfate [Ventolin HFA] 2 puff INHALATION RT-Q4H PRN 02/28/24 09/19/24 History Amiodarone [Cordarone] 100 mg PO DAILY 02/28/24 09/19/24 History Atorvastatin Calcium [Lipitor] 40 mg PO HS 02/28/24 09/19/24 History Candesartan Cilexetil 8 mg PO DAILY 02/28/24 09/19/24 History Gabapentin [Neurontin] 100 mg PO BID 02/28/24 09/19/24 History Ipratropium [place] [Ipratropium 2 spray EA NOSTRIL BID 02/28/24 09/19/24 History [place] 0.03%] Levothyroxine Sodium [Synthroid] 75 mcg PO DAILY 09/19/24 09/19/24 History Omeprazole 40 mg PO BID 09/19/24 09/19/24 History Prednisolone Acetate/Pf 2 drop BOTH EYES BID 09/19/24 09/19/24 History [Prednisolone Acet 1% Eye Drop] Tiotropium 18 Mcg/Puff [Spiriva] 1 cap INHALATION RT-DAILY 09/19/24 09/19/24 History Allergies Allergy/AdvReac Type Severity Reaction Status Date / Time aspirin AdvReac 325mg Verified 09/19/24 08:01 causes abdominal pain levofloxacin [From Levaquin] AdvReac weakness Verified 09/19/24 08:01 olmesartan [From Benicar] AdvReac "makes her Verified 09/19/24 08:01 crazy" Physical Exam Vitals: Vital Signs Temp Pulse Pulse Resp BP BP Pulse Ox 09/20/24 08:51 96 09/20/24 07:35 97.7 F 78 16 122/80 97 09/20/24 01:20 97.5 F L 75 17 135/85 96 09/19/24 20:00 20 09/19/24 18:45 98.1 F 84 18 151/88 96 09/19/24 16:30 97.6 F 68 20 175/78 95 09/19/24 15:34 97.7 F 66 16 167/91 97 09/19/24 11:49 65 18 174/93 98 Intake and Output 09/19/24 09/20/24 09/20/24 22:59 06:59 14:59 Intake Total 780 240 Output Total 300 1500 Balance 480 -1260 Intake: Oral 780 240 Output: Urine 300 1500 Other: Voiding Method External Catheter Weight 44.452 kg Patient is awake, comfortable, no acute distress Examination of the heart S1 and S2 Examination of the lungs bilateral breath sounds are heard Abdomen is soft nontender Examination of lower extremities showed no evidence of edema 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 Hyponatremia, currently euvolemic. Urine osmolality 332. Sodium had improved post fluid bolus therefore unlikely to be SIADH. I do not see saline infusion in her medication history to suggest a drop in serum sodium with saline infusion. At this time I will continue with the urea and patient is encouraged to increase protein intake. Urine osmolality was 332 which is not significantly elevated. TSH not elevated. 2. Recent UTI status post patient treatment. Current UA is unremarkable 3. Generalized weakness 4. Hypertension maintained on candesartan Plan: Check bladder scan, rule out urine retention Continue with urea May continue with fluid restriction Patient is advised to increase oral protein intake Repeat sodium in a.m. Thank you for the consultation. Will continue to follow the patient with you during her hospitalization.
[2024-09-20] MEDS: ALBUTEROL NEBULIZED 2.5 MG/3 ML INHALATION PRN (12:33)
--- NOTE | 2024-09-20 15:06 | P.PN ---
Subjective Progress Note Date: 09/20/24 Hospital Course: An 84-year-old female with medical history of chronic hypoxic respiratory fail ure secondary COPD on 2L home oxygen, hypothyroidism, hypertension, GERD, hyperlipidemia, who presents to the ER with generalized weakness. She reports that she was in her usual state of health up until 2 weeks prior. She reports that she felt like she had a urinary tract infection had called her PCP and she was on an unknown antibiotic to the pharmacy. She reports this was near September 07. She reports that she had finished the course of antibiotics however reports that last week a urinalysis with culture was drawn however this was not done initially. She reports that there was 2 strains of bacteria and there was concern that the first antibiotic did not cover for this. She was given levofloxacin and Lasix. She reports that she had taken both. She is not sure why she was prescribed Lasix. She reports that she took both medications today and felt very weak. She then presented to the hospital for further evaluation When she presented to the hospital her white blood cell count was 7.52, hgb of 10.5, mcv of 110. platelet count of 155. cmp had shown a na level of 125. cr was 0.72. lactic acid ws 2.2 rsv covidflu wer engeative. cxr had shwon no acute process. Patient was admitted for further management of weakness, hyponatremia She was placed on 2 L fluid restriction, serum osmolality 268, urine osmolality 322, sodium dropped down to 128, consistent with hypotonic euvolemic hy ponatremia most likely due to SIADH, fluid restriction changed to 1.5 L a day, started on urea 15 g twice daily, nephrology consulted. Patient states that she does not have any signs and symptoms of UTI, refused to complete her treatment with levofloxacin,. Complains of ongoing generalized weakness Due to worsening hyponatremia, patient will be switched to inpatient, 09/20: Seen examined bedside, feels very fatigued, had another sleep at this night however only 1 hour the night before. Sodium improved, nephrology recommends to continue urea and repeat BMP in the morning. PT OT evaluation pen ding. Pertinent positives and negatives as discussed above, a complete review of systems was performed and all other systems are negative. Vitals Signs Reviewed. General: [nontoxic], [no distress], [appears at stated age] Derm: [warm], [dry] Head: [atraumatic], [normocephalic], [symmetric] Eyes: [EOMI], [no lid lag], [anicteric sclera] Mouth: [no lip lesion], [mucus membranes moist] Cardiovascular: [S1S2 reg], [no murmur] Lungs: [CTA bilateral], [no rhonchi, no rales] , [no accessory muscle use] Abdominal: [soft], [ nontender to palpation], [no guarding], [no appreciable organomegaly] Ext: [no gross muscle atrophy], [no edema], [no contractures] Neuro: [ CN II-XI grossly intact], [no focal neuro deficits] Psych: [Alert], [oriented], [appropriate affect] Assessment and Plan: Generalized weakness Acute euvolemic hypotonic hyponatremia Lactic acidosis, resolved -Fluid restriction 1500 cc, started urea 15 twice daily, nephrology consulted, appreciate recommendations, recheck BMP in a.m. - Lasix was discontinued, still unclear why patient was placed on it by her PCP -Check TSH-0.16, free T4 normal 1.49 - PT OT consulted, discussed with RN Recent UTI -Denies current symptoms, UA negative for UTI, monitor off antibiotics Chronic hypoxic respiratory failure secondary to COPD -Continue home Ventolin and Spiriva 2 puff daily Hypertension -Continue home losartan 50 mg daily Hyperlipidemia -Continue home atorvastatin 40 mg nightly Hypothyroidism -Continue home levothyroxine 75 mcg p.o. daily DVT ppx: Lovenox Code status: Full code Anticipated discharge place: TBD Anticipated discharge time: TBD Objective - Vital Signs Vital signs: Vital Signs Temp 97.7 F 09/20/24 07:35 Pulse 76 09/20/24 12:43 Resp 16 09/20/24 07:35 BP 122/80 09/20/24 07:35 Pulse Ox 96 09/20/24 08:51 FiO2 Intake & Output 09/19/24 09/20/24 09/20/24 18:59 06:59 18:59 Intake Total 240 780 Output Total 1800 Balance 240 -1020 Weight 44.452 kg Intake: Oral 240 780 Output: Urine 1800 Other: Voiding Method External Catheter External Catheter External Catheter - Labs CBC & Chem 7: 09/18/24 22:58 09/20/24 05:43 Labs: Abnormal Lab Results - Last 24 Hours (Table) 09/19/24 09/20/24 Range/Units 15:46 05:43 Sodium 129 L 134 L (137-145) mmol/L Chloride 90 L 95 L (98-107) mmol/L Carbon Dioxide 32 H 31 H (22-30) mmol/L BUN 28 H 45 H (7-17) mg/dL TSH 0.421 L (0.465-4.680) mIU/L
[2024-09-21 09:25] LABS: Blood Urea Nitrogen 25.8 mg/dL (9.0-27.0); Calcium 9.3 mg/dL (8.7-10.3); Carbon Dioxide 27.7 mmol/L (21.6-31.8); Chloride 101 mmol/L (96-109); Glucose 101 mg/dL (70-110); Potassium 4.4 mmol/L (3.5-5.5); Sodium 139 mmol/L (135-145)
--- NOTE | 2024-09-21 10:25 | P.PN ---
Subjective Patient is seen for follow-up for hyponatremia. Sodium has improved to 139. Currently not on IV fluids Tolerating oral intake No significant complaints today. Objective - Vital Signs Vital signs: Vital Signs Temp 97.9 F 09/21/24 08:00 Pulse 71 09/21/24 08:00 Resp 13 09/21/24 08:00 BP 107/64 09/21/24 08:00 Pulse Ox 98 09/21/24 08:01 FiO2 Intake & Output 09/20/24 09/21/24 09/21/24 18:59 06:59 18:59 Intake Total 1080 240 Output Total 500 400 Balance 580 -160 Intake: Oral 1080 240 Output: Urine 500 400 Other: Voiding Method External Catheter # Voids 1 # Bowel Movements 1 - Exam Patient is awake, comfortable, no acute distress Examination of the heart S1 and S2 Examination of the lungs bilateral breath sounds are heard Abdomen is soft nontender Examination of lower extremities showed no evidence of edema LICENSED GUIDE exam grossly intact - Labs CBC & Chem 7: 09/18/24 22:58 09/21/24 04:19 Labs: Abnormal Lab Results - Last 24 Hours (Table) 09/21/24 Range/Units 04:19 BUN/Creatinine Ratio 43.00 H (12.00-20.00) Ratio Assessment and Plan Assessment: 1. Hyponatremia, currently euvolemic. Urine osmolality 332. Sodium had improv ed post fluid bolus therefore unlikely to be SIADH. I do not see saline infusion in her medication history to suggest a drop in serum sodium with saline infusion. At this time I will continue with the urea and patient is encouraged to increase protein intake. Urine osmolality was 332 which is not significantly elevated. TSH not elevated. 2. Recent UTI status post patient treatment. Current UA is unremarkable 3. Generalized weakness 4. Hypertension maintained on candesartan Plan: DC urea in a.m. if sodium is further increased May continue with fluid restriction Patient is advised to increase oral protein intake Repeat sodium in a.m.
--- NOTE | 2024-09-21 11:53 | P.PN ---
Subjective Progress Note Date: 09/21/24 Hospital Course: An 84-year-old female with medical history of chronic hypoxic respiratory fail ure secondary COPD on 2L home oxygen, hypothyroidism, hypertension, GERD, hyperlipidemia, who presents to the ER with generalized weakness. She reports that she was in her usual state of health up until 2 weeks prior. She reports that she felt like she had a urinary tract infection had called her PCP and she was on an unknown antibiotic to the pharmacy. She reports this was near September 07. She reports that she had finished the course of antibiotics however reports that last week a urinalysis with culture was drawn however this was not done initially. She reports that there was 2 strains of bacteria and there was concern that the first antibiotic did not cover for this. She was given levofloxacin and Lasix. She reports that she had taken both. She is not sure why she was prescribed Lasix. She reports that she took both medications today and felt very weak. She then presented to the hospital for further evaluation When she presented to the hospital her white blood cell count was 7.52, hgb of 10.5, mcv of 110. platelet count of 155. cmp had shown a na level of 125. cr was 0.72. lactic acid ws 2.2 rsv covidflu wer engeative. cxr had shwon no acute process. Patient was admitted for further management of weakness, hyponatremia She was placed on 2 L fluid restriction, serum osmolality 268, urine osmolality 322, sodium dropped down to 128, consistent with hypotonic euvolemic hy ponatremia most likely due to SIADH, fluid restriction changed to 1.5 L a day, started on urea 15 g twice daily, nephrology consulted. Patient states that she does not have any signs and symptoms of UTI, refused to complete her treatment with levofloxacin,. Complains of ongoing generalized weakness Due to worsening hyponatremia, patient will be switched to inpatient, 09/20: Seen examined bedside, feels very fatigued, had another sleep at this night however only 1 hour the night before. Sodium improved, nephrology recommends to continue urea and repeat BMP in the morning. PT OT evaluation kendra krishnamurthy. 09/21: Seen and examined at bedside, no events overnight, feels significantly better today with more energy, better night sleep. Sodium normal 139, per nephrology, consider discontinuing urea if sodium continues to rise, continue fluid restriction. Patient was encouraged to increase her level of activity, sit in the chair, ambulate under supervision. PT OT pending Pertinent positives and negatives as discussed above, a complete review of systems was performed and all other systems are negative. Vitals Signs Reviewed. General: [nontoxic], [no distress], [appears at stated age] Derm: [warm], [dry] Head: [atraumatic], [normocephalic], [symmetric] Eyes: [EOMI], [no lid lag], [anicteric sclera] Mouth: [no lip lesion], [mucus membranes moist] Cardiovascular: [S1S2 reg], [no murmur] Lungs: [CTA bilateral], [no rhonchi, no rales] , [no accessory muscle use] Abdominal: [soft], [ nontender to palpation], [no guarding], [no appreciable organomegaly] Ext: [no gross muscle atrophy], [no edema], [no contractures] Neuro: [ CN II-XI grossly intact], [no focal neuro deficits] Psych: [Alert], [oriented], [appropriate affect] Assessment and Plan: Generalized weakness Acute euvolemic hypotonic hyponatremia Lactic acidosis, resolved -Fluid restriction 1500 cc, started urea 15 twice daily, nephrology consulted, appreciate recommendations, recheck BMP in a.m. - Lasix was discontinued, still unclear why patient was placed on it by her PCP -Check TSH-0.16, free T4 normal 1.49 - PT OT consulted Recent UTI -Denies current symptoms, UA negative for UTI, monitor off antibiotics Chronic hypoxic respiratory failure secondary to COPD -Continue home Ventolin and Spiriva 2 puff daily Hypertension -Continue home losartan 50 mg daily Hyperlipidemia -Continue home atorvastatin 40 mg nightly Hypothyroidism -Continue home levothyroxine 75 mcg p.o. daily DVT ppx: Lovenox Code status: Full code Anticipated discharge place: TBD Anticipated discharge time: TBD Objective - Vital Signs Vital signs: Vital Signs Temp 97.9 F 09/21/24 08:00 Pulse 71 09/21/24 08:00 Resp 13 09/21/24 08:00 BP 107/64 09/21/24 08:00 Pulse Ox 98 09/21/24 08:01 FiO2 Intake & Output 09/20/24 09/21/24 09/21/24 18:59 06:59 18:59 Intake Total 1080 240 Output Total 500 400 Balance 580 -160 Intake: Oral 1080 240 Output: Urine 500 400 Other: Voiding Method External Catheter External Catheter # Voids 1 # Bowel Movements 1 - Labs CBC & Chem 7: 09/18/24 22:58 09/21/24 04:19 Labs: Abnormal Lab Results - Last 24 Hours (Table) 09/21/24 Range/Units 04:19 BUN/Creatinine Ratio 43.00 H (12.00-20.00) Ratio
[2024-09-21] MEDS: ZINC OXIDE PASTE (Z-GUARD) 1 APPLIC TOPICAL PRN (20:46)
[2024-09-22 09:35] LABS: HCT 35.3 % (37.2-46.3); HGB 10.8 g/dL (12.0-15.0); MCH 35.9 pg (27.0-32.0); MCHC 30.6 g/dL (32.0-37.0); MCV 117.3 FL (80.0-97.0); Mean Platelet Volume 10.5 FL (9.5-12.2); NRBC Per 100 WBC 0 X 10*3/uL (0.00-0.01); Platelet Count 224 X 10*3/uL (140-440); RBC 3.01 X 10*6/uL (4.10-5.20); RDW 12.6 % (11.5-14.5); WBC 8.55 X 10*3/uL (4.50-10.00)
--- NOTE | 2024-09-22 10:10 | P.PN ---
Subjective Patient is seen for follow-up for hyponatremia. Sodium has improved to 139 yesterday. No labs available from today. Currently not on IV fluids Tolerating oral intake No significant complaints today. Objective - Vital Signs Vital signs: Vital Signs Temp 97.6 F 09/22/24 07:59 Pulse 60 09/22/24 09:46 Resp 15 09/22/24 09:46 BP 115/77 09/22/24 07:59 Pulse Ox 98 09/22/24 08:07 FiO2 Intake & Output 09/21/24 09/22/24 09/22/24 18:59 06:59 18:59 Intake Total 550 480 Output Total 300 Balance 550 180 Intake: Oral 550 480 Output: Urine 300 Other: Voiding Method External Catheter External Catheter External Catheter # Voids 1 1 - Exam Patient is awake, comfortable, no acute distress Examination of the heart S1 and S2 Examination of the lungs bilateral breath sounds are heard Abdomen is soft nontender Examination of lower extremities showed no evidence of edema 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 Hyponatremia, currently euvolemic. Urine osmolality 332. Sodium had improved post fluid bolus therefore unlikely to be SIADH. Maintained on urea and fluid restriction urine osmolality was 332 which is not significantly elevated. TSH not elevated. 2. Recent UTI status post patient treatment. Current UA is unremarkable 3. Generalized weakness 4. Hypertension maintained on candesartan Plan: DC urea today if serum sodium is higher May continue with fluid restriction Patient is advised to increase oral protein intake
[2024-09-22 10:22] LABS: Basophils # (A) 0.03 X 10*3/uL (0.00-0.10); Basophils % (A) 0.4 %; Eosinophils # (A) 0.16 X 10*3/uL (0.04-0.35); Eosinophils % (A) 1.9 %; Lymphocytes # (A) 1.22 X 10*3/uL (0.90-5.00); Lymphocytes % (A) 14.3 %; Macrocytosis (M) 2+ (None Seen); Monocytes # (A) 0.86 X 10*3/uL (0.20-1.00); Monocytes % (A) 10.1 %; Neutrophils # (A) 6.25 X 10*3/uL (1.80-7.70); Neutrophils % (A) 72.9 %
[2024-09-22 10:23] LABS: Blood Urea Nitrogen 31.8 mg/dL (9.0-27.0); Calcium 9.4 mg/dL (8.7-10.3); Chloride 101 mmol/L (96-109); Glucose 105 mg/dL (70-110); Potassium 4.6 mmol/L (3.5-5.5); Sodium 140 mmol/L (135-145)
--- NOTE | 2024-09-22 14:57 | P.PN ---
Subjective Progress Note Date: 09/22/24 84 year old F with PMH of COPD on 4L NC, hypothyroidism, HTN, HLD presents to the ED for generalized weakness. Previously been treated for a UTI with Levaquin in the outpatient setting. Also given Lasix for unknown reasons. In the ED she underwent extensive evaluation. BP 164/79, HR 79, RR 18, T 98F, 90% on 4L NC. CBC, Coag panel, CMP significant for RBC 2.83, Hg 10.5, Hct 31.2, MCV 110.2, Na 126, Cl 99, bicarb 31. Lactic acid 2.2. Trop < 0.012. UA neg LE or nitrite. COVID, RSV, Flu neg. CXR showed bilateral atelectasis and large hiatal hernia. EKG sinus rhythm with LBBB. Patient was admitted for further workup and management. Nephrology consulted. Serum Osm 268, Urine Osm 332. TSH 0.421, FT4 1.49. Cortisol 12.9. Started on urea 15g PO BID and encouraged high protein diet. Sodium improved to 140 on 09/22. 09/22 Patient was seen and examined. Feeling well. No concerns. Awaiting PT and OT evaluation. Lives at home with sister. CBC and BMP significant for RBC 3.01, Hg 10.8, Hct 35.3, MCV 117.3, BUN 31.8. BP 118/78, HR 64, T 98.2F, RR 20, 99% on 3L NC. General: no distress, appears at stated age Derm: warm, dry Head: atraumatic, normocephalic, symmetric Mouth: no lip lesion, mucus membranes moist Cardiovascular: S1 S2 reg. No murmur. Lungs: Decreased BS bilaterally, no accessory muscle use Ext: no gross muscle atrophy, no edema, no contractures Neuro: No focal neurologic deficits. Psych: Alert and oriented. Based on my assessment of this patient, this patient meets a high complexity level of care. Generalized weakness secondary to euvolemic hyponatremia: Urea discontinued today. Hyponatremia resolved. Continue 1.5L fluid restriction. Stop Lasix. Nephrology on board. Chronic respiratory failure secondary to COPD on 2L home O2: Not in acute exacerbation. Spiriva 2 INH QD. Albuterol neb Q4H PRN. Macrocytic anemia: B12 1451. Folate pending. Hg stable. Outpatient workup. Hypothyroidism: Synthroid 75 mcg PO QD. Repeat TSH and FT4 in 6 weeks for further adjustments in synthroid. HTN: Losartan 50 mg PO QD. HLD: Lipitor 40 mg PO QHS. Resolved: Lactic acidosis CODE STATUS: FULL CODE DVT Prophylaxis: Lovenox SQ. GI Prophylaxis: Designated medical POA if patient is not able to make medical decisions for themselves: I have reviewed the following health and safety consultant notes: Nephrology. I have reviewed the results of the following tests: CBC, BMP. I have ordered the following tests: I have discussed the care of this patient with the following independent historian: I have independently interpreted the following test below: I have discussed the management of this patient with the following physician: Objective - Vital Signs Vital signs: Vital Signs Temp 98.2 F 09/22/24 14:39 Pulse 64 09/22/24 14:39 Resp 20 09/22/24 14:39 BP 118/78 09/22/24 14:39 Pulse Ox 99 09/22/24 14:39 FiO2 Intake & Output 09/21/24 09/22/24 09/22/24 18:59 06:59 18:59 Intake Total 550 480 Output Total 300 Balance 550 180 Intake: Oral 550 480 Output: Urine 300 Other: Voiding Method External Catheter External Catheter External Catheter # Voids 1 1 - Labs CBC & Chem 7: 09/22/24 04:44 09/22/24 04:44 Labs: Abnormal Lab Results - Last 24 Hours (Table) 09/22/24 09/22/24 Range/Units 04:44 04:44 RBC 3.01 L (4.10-5.20) X 10*6/uL Hgb 10.8 L (12.0-15.0) g/dL Hct 35.3 L (37.2-46.3) % MCV 117.3 H (80.0-97.0) FL MCH 35.9 H (27.0-32.0) pg MCHC 30.6 L (32.0-37.0) g/dL Macrocytosis (manual) 2+ A (None Seen) BUN 31.8 H (9.0-27.0) mg/dL BUN/Creatinine Ratio 53.00 H (12.00-20.00) Ratio
--- NOTE | 2024-09-23 10:05 | P.PN ---
Subjective Patient is seen in follow-up for hyponatremia. Sodium level 140 yesterday. Resting in bed. Hemodynamically stable. Nonoliguric. Vital signs are stable. General: No acute distress. HEENT: Head exam is unremarkable. On nasal cannula. LUNGS: No audible rhonchi or wheezes. HEART: Rate and Rhythm are regular. ABDOMEN: Nontender. EXTREMITITES: No edema. Objective - Vital Signs Vital signs: Vital Signs Temp 97.4 F L 09/23/24 07:01 Pulse 65 09/23/24 08:09 Resp 15 09/23/24 07:01 BP 133/75 09/23/24 07:01 Pulse Ox 99 09/23/24 08:12 FiO2 Intake & Output 09/22/24 09/23/24 09/23/24 18:59 06:59 18:59 Intake Total 240 Balance 240 Intake: Oral 240 Other: Voiding Method External Catheter External Catheter # Voids 1 3 - Labs CBC & Chem 7: 09/22/24 04:44 09/22/24 04:44 Labs: Abnormal Lab Results - Last 24 Hours (Table) 09/22/24 09/22/24 Range/Units 04:44 04:44 Macrocytosis (manual) 2+ A (None Seen) BUN 31.8 H (9.0-27.0) mg/dL BUN/Creatinine Ratio 53.00 H (12.00-20.00) Ratio Assessment and Plan Plan: Assessment: 1. Hypovolemic hyponatremia improved with IV fluids. Now euvolemic. Urine osmolality 332. TSH little low. 2. Benign hypertension. 3. Generalized weakness. Plan: Encouraged oral intake. Maintain fluid restriction. Urea now discontinued.
[2024-09-23 13:03] VITALS: BP 122/78; PULSE 66; RESP 18; TEMP 97.8
--- NOTE | 2024-09-23 13:16 | P.DS ---
Providers Date of admission: 09/19/24 01:11 Expected date of discharge: 09/23/24 Attending physician: Jesus Charlton MD Consults: 09/19/24 14:49 Consult Physician Routine Consulting Provider: Moise Valladares Consult Reason/Comments: hyponatremia, siadh? Do you want consulting provider notified?: Yes Primary care physician: [facility] Course: 84 year old F with PMH of COPD on 4L NC, hypothyroidism, HTN, HLD presents to the ED for generalized weakness. Previously been treated for a UTI with Levaquin in the outpatient setting. Also given Lasix for unknown reasons. In the ED she underwent extensive evaluation. BP 164/79, HR 79, RR 18, T 98F, 90% on 4L NC. CBC, Coag panel, CMP significant for RBC 2.83, Hg 10.5, Hct 31.2, MCV 110.2, Na 126, Cl 99, bicarb 31. Lactic acid 2.2. Trop < 0.012. UA neg LE or nitrite. COVID, RSV, Flu neg. CXR showed bilateral atelectasis and large hiatal hernia. EKG sinus rhythm with LBBB. Patient was admitted for further workup and management. Nephrology consulted. Serum Osm 268, Urine Osm 332. TSH 0.421, FT4 1.49. Cortisol 12.9. Started on urea 15g PO BID and encouraged high protein diet. Sodium improved to 140 on 09/22. 09/22 Patient was seen and examined. Feeling well. No concerns. Awaiting PT and OT evaluation. Lives at home with sister. CBC and BMP significant for RBC 3.01, Hg 10.8, Hct 35.3, MCV 117.3, BUN 31.8. 09/23 Patient was seen and examined. Feeling well. PT and OT recommending HHC. No new labs done today. Discharge Plan: Advised 1.5 L fluid restriction with high protein diet. Follow up with PCP within 1-2 days of discharge. BP 122/78, HR 66, T 97.8F, RR 18, 96% on 3L NC. General: no distress, appears at stated age Derm: warm, dry Head: atraumatic, normocephalic, symmetric Mouth: no lip lesion, mucus membranes moist Cardiovascular: S1 S2 reg. No murmur. Lungs: Decreased BS bilaterally, no accessory muscle use Ext: no gross muscle atrophy, no edema, no contractures Neuro: No focal neurologic deficits. Psych: Alert and oriented. Discharge Diagnosis: Generalized weakness secondary to euvolemic hyponatremia Chronic respiratory failure secondary to COPD on 2L home O2 Macrocytic anemia Hypothyroidism HTN HLD Resolved: Lactic acidosis This complex discharge took 35 minutes to complete. Patient Condition at Discharge: Stable Plan - Discharge Summary Discharge Rx Participant: No New Discharge Prescriptions: Continue Gabapentin [Neurontin] 100 mg PO BID Omeprazole 40 mg PO BID Albuterol Sulfate [Ventolin HFA] 2 puff INHALATION RT-Q4H PRN PRN Reason: Shortness Of Breath Ipratropium [place] [Ipratropium [place] 0.03%] 2 spray EA NOSTRIL BID Candesartan Cilexetil 8 mg PO DAILY Atorvastatin Calcium [Lipitor] 40 mg PO HS Amiodarone [Cordarone] 100 mg PO DAILY Levothyroxine Sodium [Synthroid] 75 mcg PO DAILY Tiotropium 18 Mcg/Puff [Spiriva] 1 cap INHALATION RT-DAILY Prednisolone Acetate/Pf [Prednisolone Acet 1% Eye Drop] 2 drop BOTH EYES BID Discharge Medication List Albuterol Sulfate [Ventolin HFA] 2 puff INHALATION RT-Q4H PRN 02/28/24 [History] Amiodarone [Cordarone] 100 mg PO DAILY 02/28/24 [History] Atorvastatin Calcium [Lipitor] 40 mg PO HS 02/28/24 [History] Candesartan Cilexetil 8 mg PO DAILY 02/28/24 [History] Gabapentin [Neurontin] 100 mg PO BID 02/28/24 [History] Ipratropium [place] [Ipratropium [place] 0.03%] 2 spray EA NOSTRIL BID 02/28/24 [History] Levothyroxine Sodium [Synthroid] 75 mcg PO DAILY 09/19/24 [History] Omeprazole 40 mg PO BID 09/19/24 [History] Prednisolone Acetate/Pf [Prednisolone Acet 1% Eye Drop] 2 drop BOTH EYES BID 09/19/24 [History] Tiotropium 18 Mcg/Puff [Spiriva] 1 cap INHALATION RT-DAILY 09/19/24 [History] Follow up Appointment(s)/Referral(s): Ami Ziegler [Primary Care Provider] - 1-2 days Patient Instructions/Handouts: Hyponatremia (GEN) Activity/Diet/Wound Care/Special Instructions: Diet: High protein, 1.5 L fluid restriction Discharge Disposition: HOME SELF-CARE
--- NOTE | 2024-09-25 14:35 | CDI ---
Documentation Clarification Form Date: 09/25/2024 02:17:37 PM From: Negra Leslie Phone: Admit Date: 09/19/2024 01:11:00 AM Patient Name: Radha Luciano Visit Number: [id number] Discharge Date: 09/23/2024 01:43:00 PM ATTENTION: The Clinical Documentation Specialists (CDI) and [facility] Coding Staff appreciate your assistance in clarifying documentation. Please respond to the clarification below the line at the bottom and electronically sign. The CDI & [facility] Coding staff will review the response and follow-up if needed. Please note: Queries are made part of the Legal Health Record. If you have any questions, please contact the author of this message via ITS. Doctor/Provider: Jesus hCarlton Conflicting documentation has been found in the medical record. As attending physician, please provide clarification. [unlikely to beSIADH in 09/20 consult note] [Acute euvolemichypotonichyponatremialikely secondary toSIADH in 09/19 pn] History/Risk Factors: Pt is a 84 YO F with a pmhx ofcopd,chronic hypoxic respiratory failure on 4 L NC, andhypothyroiddz, Clinical Indicators: On 09/19 H/P note -When she presented to the hospital her white blood cell count was 7. 52, hgb of 10. 5, mcv of 110. platelet count of 155. cmp had shown a na level of 125. cr was 0. 72. lactic acid ws 2. 2rsvcovidflu wer engeative. cxrhad shwon no acute process. On 09/20 consult note -Hyponatremia, currently euvolemic. Urine osmolality 332. Sodium had improved post fluid bolus thereforeunlikely to beSIADH. Ravinder not seesaline infusionin her medication history to suggest a drop in serum sodium with saline infusion. At this time I will continue with the urea and patient is encouraged to increase protein intake. Urine osmolality was 332 whichis notsignificantly elevated. TSHnotelevated. On 09/21 pn -Patient was admitted for further management ofweakness,hyponatremia She wasplacedon 2 L fluidrestriction, serum osmolality 268, urine osmolality 322, sodium dropped down to 128, consistent withhypotoniceuvolemic hyponatremiamost likely due toSIADH, fluidrestrictionchanged to 1. 5 L a day, started on urea 15 g twice daily, nephrology consulted. Pn 09/23 -Patient is seen infollow-upforhyponatremia. Sodium level 140 yesterday. Resting in bed. Hemodynamically stable. Nonoliguric. Treatment: Started on urea 15g PO BID and encouraged high protein diet. Sodium improved to 140 Please clarify which diagnosis is most appropriate: [X ] [SIADH is present and treated] [ ] [No SIADH , hyponatremia present and treated. ] [ ] Other (please specify) [ ] Unable to determine (Template Last Revised: June 2020) MTDD
== END 2024-09-23 13:43 | disposition home or self-care (01) | DRG 644 ==
LOC: EC 22:37 → SUPCPDRO 22:37 → 5NMEDONC 09-19 01:11
PROVIDERS: ADMIT Internal Medicine; ATTEND Internal Medicine
DX: E22.2 Syndrome of inappropriate secretion of antidiuretic hormone (principal); E87.20 Acidosis, unspecified; J44.0 Chronic obstructive pulmonary disease with (acute) lower respiratory infection; Z99.81 Dependence on supplemental oxygen; J96.11 Chronic respiratory failure with hypoxia; E86.1 Hypovolemia; I48.91 Unspecified atrial fibrillation; E03.9 Hypothyroidism, unspecified; I10 Essential (primary) hypertension; D53.9 Nutritional anemia, unspecified; E78.5 Hyperlipidemia, unspecified; Z86.73 Personal history of transient ischemic attack (TIA), and cerebral infarction without residual deficits; Z79.899 Other long term (current) drug therapy; Z79.890 Hormone replacement therapy; Z88.6 Allergy status to analgesic agent; Z87.891 Personal history of nicotine dependence; K21.9 Gastro-esophageal reflux disease without esophagitis; G62.9 Polyneuropathy, unspecified; I44.7 Left bundle-branch block, unspecified; Z79.51 Long term (current) use of inhaled steroids; Z86.718 Personal history of other venous thrombosis and embolism; Z87.440 Personal history of urinary (tract) infections
CPT/HCPCS: 36415; 71046; 80048; 80053; 81001; 82533; 82607; 82747; 83605; 83735; 83930; 83935; 84439; 84443; 84484; 85025; 85610; 85730; 87636; 93005; 94640; 94760; 96360; 96372; 99285

== ENCOUNTER → 2024-11-19 | Outpatient (CLI) | payer MEDICARE ==
--- NOTE | 2024-11-19 15:45 | US ---
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 TECHNIQUE: Grayscale, color Doppler and spectral Doppler evaluation of the bilateral carotid systems and vertebral arteries. Indirect Doppler criteria was utilized. FINDINGS: EXAM MEASUREMENTS: RIGHT: Peak Systolic Velocity (PSV) cm/sec ----- Right CCA: 70.3 ----- Right ICA: 96.3 ----- Right ECA: 71.0 ICA/CCA ratio: 1.4 RIGHT: End Diastole cm/sec ----- Right CCA: 21.5 ----- Right ICA: 25.9 ----- Right ECA: 0.0 LEFT: Peak Systolic Velocity (PSV) cm/sec ----- Left CCA: 93.0 ----- Left ICA: 101.8 ----- Left ECA: 82.0 ICA/CCA ratio: 1.1 LEFT: End Diastole cm/sec ----- Left CCA: 23.7 ----- Left ICA: 24.8 ----- Left ECA: 0.0 VERTEBRALS (direction of flow): Right Vertebral: Antegrade Left Vertebral: Bidirectional flow noted Rhythm: Normal [employer] NOTES: Exam limited by patient condition and calcified plaque throughout Significant plaque seen in the bulbs bilaterally, additional plaque throughout. Color Doppler imaging shows patency with blood flow throughout the carotid artery. Spectral waveforms are within normal limits. IMPRESSION: 1. Atheromatous plaquing. 2. No significant flow-limiting stenosis based on velocities. 3. Clinical consideration for subclavian steal syndrome through the left vertebral artery Criteria for Assigning % of Stenosis / Diameter reduction (Estimation based on the indirect measurements of the internal carotid artery velocities (ICA PSV). 1. Normal (no stenosis)=ICA PSV < 180 cm/s: ratio < 2.0: ICA EDV<40 cm/s. 2. Less than 50% stenosis=ICA PSV < 180 cm/s: ratio < 2.0: ICA EDV<40 cm/s. 3. 50 to 69% stenosis=ICA PSV of 180 to 230 cm/s: ration 2.0 ? 4.0: ICA EDV 40-100 cm/s. PSV 125-180 cm/sec and ICA/CCA PSV Ratio ? 2.0 is also consistent with 50-69% stenosis 4. Greater than 70% stenosis to near occlusion= ICA PSV > 230 cm/s: ratio > 4.0: ICA EDV > 100 cm/s. 5. Near occlusion= ICA PSV velocities may be low or undetectable: variable ratio and ICA EDV. 6. Total occlusion=unable to detect flow. [facility], Workstation: [facility], 11/19/2024 3:43 PM
[2024-11-19 19:55] LABS: Basophils # (A) 0.03 X 10*3/uL (0.00-0.10); Basophils % (A) 0.5 %; Eosinophils # (A) 0.07 X 10*3/uL (0.04-0.35); Eosinophils % (A) 1.2 %; HCT 37.9 % (37.2-46.3); HGB 11.7 g/dL (12.0-15.0); Immature Grans, Automated 0.30 %; Lymphocytes # (A) 1.73 X 10*3/uL (0.90-5.00); Lymphocytes % (A) 28.5 %; MCH 35.3 pg (27.0-32.0); MCHC 30.9 g/dL (32.0-37.0); MCV 114.5 FL (80.0-97.0); Monocytes # (A) 0.56 X 10*3/uL (0.20-1.00); Monocytes % (A) 9.2 %; NRBC Per 100 WBC 0 X 10*3/uL (0.00-0.01); Neutrophils # (A) 3.66 X 10*3/uL (1.80-7.70); Neutrophils % (A) 60.3 %; Platelet Count 152 X 10*3/uL (140-440); RBC 3.31 X 10*6/uL (4.10-5.20); RDW 12.4 % (11.5-14.5); WBC 6.07 X 10*3/uL (4.50-10.00)
[2024-11-19 20:41] LABS: Anion Gap 11.50 mmol/L (4.00-12.00); BUN/Creat Ratio 23.83 Ratio (12.00-20.00); Blood Urea Nitrogen 14.3 mg/dL (9.0-27.0); Calcium 9.2 mg/dL (8.7-10.3); Carbon Dioxide 26.5 mmol/L (21.6-31.8); Chloride 97 mmol/L (96-109); Ferritin 44.1 ng/mL (10.0-291.0); Glucose 85 mg/dL (70-110); Iron 98 UG/DL (50-170); Potassium 5.1 mmol/L (3.5-5.5); Sodium 135 mmol/L (135-145); T4, Free (Free Thyroxine) 1.56 ng/dL (0.80-1.80); Total Iron Binding Capacity 295 UG/DL (228-460); Vitamin B12 1783.0 pg/mL (200.0-944.0)
== END | disposition home or self-care (01) ==
LOC: RADUSWWP 14:51
PROVIDERS: ATTEND Internal Medicine
DX: I65.23 Occlusion and stenosis of bilateral carotid arteries (principal); E03.9 Hypothyroidism, unspecified
CPT/HCPCS: 80048; 82607; 82728; 82746; 83036; 83540; 83550; 84439; 84443; 85025; 93880